=== PATIENT | male | born 1940 | race Two or more races ===

== ENCOUNTER 2016-07-08 23:11 | Inpatient (IN) | payer OTHER ==
[~2016-07-08] VITALS: Ht 165.1 cm; Wt 63.0 kg
[~2016-07-08 23:11] MED LIST: ALLO100T PO; ASPI81TA3 PO; ATOR80TA75 PO; CALC667T2 PO; CARV25TA97 PO; CLIN-73 PO; LANT3I SC; LOSA100T47 PO; NOVO3I SC; PRED20TA PO; RIFA550T4 PO; SENN8.6C3 PO; TAMS-14 PO; TORS20TA2 PO
[2016-07-09] VITALS (10 sets, daily range): BP systolic 112–120; BP diastolic 51–58; PULSE 62–69; RESP 17–19; Ht 165.1 cm; Wt 63.0 kg
[2016-07-09] MEDS ORDERED: SENNA TAB PO PRN (05:30)
[2016-07-09] MEDS: CLINDAMYCIN 300 MG CAP PO SCH ×3 (06:00→21:00)
[2016-07-09] MEDS ORDERED: DEXTROSE 50% 50 ML SYRINGE IV PRN (06:00)
[2016-07-09] MEDS ORDERED: GLUCOSE GEL 15 GRAM TUBE PO PRN ×2 (06:00)
[2016-07-09] MEDS ORDERED: GLUCAGON 1 MG INJ IM PRN (06:00)
[2016-07-09] MEDS ORDERED: GLUCOSE GEL 15 GRAM TUBE BUCCAL PRN (06:00)
[2016-07-09] MEDS: CALCIUM ACETATE 667 MG CAP PO SCH ×3 (07:55→17:55)
[2016-07-09] MEDS: INSULIN ASPART [NOVOLOG] 3 ML PEN SC SCH ×7 (07:55→21:00)
--- NOTE | 2016-07-09 08:20 | HP ---
DATE OF ADMISSION: 07/09/2016 CHIEF COMPLAINT: Altered mentation. HISTORY OF PRESENT ILLNESS: The patient is a 75-year-old male with multiple medical problems includ ing end-stage renal disease on dialysis with severe peripheral vascular disease, hypertension, and c oronary artery disease with history of coronary artery bypass graft, BPH, anemia of chronic disease, dyslipidemia, diabetes, history of left foot gangrene, who was transferred from [facility] of insurance reasons for altered mentation and pneumonia. Reportedly, the patient was receiv ing dialysis at the dialysis center when he became altered. He was taken to [place] where workup so far revealed that he had pneumonia. At [place], workup showed that the patient has pneumonia and a p robable UTI. The patient was transferred here for insurance reasons. Currently, he seems at his [facility] mentation. He does complain of some intermittent shortness of breath. He denied any chest p ain, fever or chills, or cough. Of note, the patient was found to have an ammonia level of 60 at e outside hospital. REVIEW OF SYSTEMS: A 12-point review of systems was performed, negative except as per HPI. PAST MEDICAL HISTORY: As per HPI. PAST SURGICAL HISTORY: Right foot amputation. ALLERGIES: NO KNOWN DRUG ALLERGIES. HOME MEDICATIONS: 1. Rifaximin. 2. Flomax. 3. Atorvastatin. 4. Coreg. 5. Losartan. 6. Aspirin. 7. Calcium. 8. Torsemide. 9. Senna. 10. Insulin. 11. Prednisone. 12. Allopurinol. PHYSICAL EXAMINATION: VITAL SIGNS: Stable. GENERAL: No acute distress, somehow sleepy but arousable and cooperative. HEENT: No obvious head deformity. Pupils are reactive to light. Extraocular muscles intact. CARDIOVASCULAR: Regular rate and rhythm. No extra heart sounds. LUNGS: Slightly decreased breath sounds at the bases. ABDOMEN: Soft, positive bowel sounds, nontender. EXTREMITIES: No edema. LABORATORY: Currently pending here. IMPRESSION 1. Altered mentation, likely from hepatic encephalopathy given elevated ammonia, stable. 2. Reported pneumonia per outside hospital x-ray. 3. End-stage renal disease on dialysis. 4. Diabetes. 5. Hypertension. 6. Coronary artery disease with history of coronary artery bypass graft. 7. BPH. 8. History of left foot ischemic change/gangrene. PLAN: 1. Will continue his home medication with adjustment as needed including rifaximin. We will start him on lactulose. 2. Will obtain basic labs and repeat ammonia level at later time. 3. Will obtain a chest x-ray. 4. He will be placed on antibiotic. We will do infectious workup as needed. 5. We will continue his Coreg medication. 6. For diabetes, he will be placed on insulin with adjustment as needed. Further workup and management per clinical course. Dictated By: DODIE BRADFORD/MAYANK Conf#: [id number] DID#: [id number]
[2016-07-09 08:24] LABS: BASOPHILS % 0.3 % (0.0-2.0); EOSINOPHILS # 0.1 10^3/ul (0.0-0.5); EOSINOPHILS % 1.4 % (0.0-7.0); HEMOGLOBIN 10.4 g/dl (14.0-18.0); LYMPHOCYTES # 0.7 10^3/ul (0.8-2.9); LYMPHOCYTES % 16.6 % (15.0-51.0); MEAN CORPUSCULAR HEMOGLOBIN 29.6 pg (29.0-33.0); MEAN CORPUSCULAR HGB CONC 33.4 g/dl (32.0-37.0); MEAN CORPUSCULAR VOLUME 88.7 fl (82.0-101.0); MEAN PLATELET VOLUME 9.6 fl (7.4-10.4); MONOCYTE # 0.3 10^3/ul (0.3-0.9); MONOCYTES % 7.1 % (0.0-11.0); NEUTROPHIL # 3.1 10^3/ul (1.6-7.5); NEUTROPHILS % 74.6 % (39.0-77.0); PLATELET COUNT 50 10^3/UL (140-440); RED CELL DISTRIBUTION WIDTH 18.1 % (11.5-14.5); UNCORRECTED WBC 4.2 10^3/ul (4.8-10.8); WHITE BLOOD COUNT 4.2 10^3/ul (4.8-10.8)
[2016-07-09 08:27] LABS: ALBUMIN 2.7 g/dl (3.3-4.9)
[2016-07-09 08:28] LABS: POTASSIUM 4.1 mmol/L (3.5-5.1)
[2016-07-09 08:30] LABS: ALBUMIN/GLOBULIN RATIO 0.61; BILIRUBIN,INDIRECT 0.2 mg/dl (0-1.1); BILIRUBIN,TOTAL 0.2 mg/dl (0.2-1.3); CREATININE 2.79 mg/dl (0.61-1.24); TOTAL PROTEIN 7.1 g/dl (6.1-8.1)
[2016-07-09 08:31] LABS: MAGNESIUM 1.8 mg/dl (1.7-2.5); PHOSPHORUS 5.9 mg/dl (2.5-4.9)
[2016-07-09 08:37] LABS: CONDITION 1; LH ANALYZER COMMENTS 1; SUSPECT 1
[2016-07-09] MEDS: ASPIRIN 81 MG TAB PO SCH (09:00)
[2016-07-09] MEDS: RIFAXIMIN 550 MG TAB PO SCH ×2 (09:00→20:59)
[2016-07-09] MEDS: LOSARTAN 50 MG TAB PO SCH (09:00)
[2016-07-09] MEDS ORDERED: LACTULOSE 30ML CUP PO SCH ×2 (09:00→14:00)
[2016-07-09] MEDS: ALLOPURINOL 100 MG TAB PO SCH (09:00)
[2016-07-09] MEDS ORDERED: LACTULOSE ENEMA 1,000 ML BTL PR SCH (12:00)
--- NOTE | 2016-07-09 14:46 | RADRPT ---
PROCEDURE: XR Chest. CLINICAL INDICATION: Shortness of breath. TECHNIQUE: Single frontal view. COMPARISON: None. FINDINGS: There is air space disease in the mid and lower lung zones which may be due to atelectasis or pneumo minoo. The lungs are otherwise clear. There is a tunneled right internal jugular vein dialysis ma[address] ter with the tip in the cavoatrial junction region. The heart is mildly enlarged. There are sternal wires. Calcification is present in the aorta consi stent with atherosclerosis. There is no right pleural effusion. There is a moderate left pleural effusion. There is no pneumothorax. IMPRESSION: 1. Right mid and lower lung zone atelectasis or pneumonia. 2. Dialysis catheter tip in the cavoatrial junction region. 3. Mild cardiomegaly. 4. Previous median sternotomy. 5. Atherosclerosis. 6. Moderate left pleural effusion. RPTAT: QQ .Kyrie Pearson MD, MD Date Time Electronically viewed and signed by .Kyrie Pearson MD, MD on 07/09/2016 14:46 .R/
--- NOTE | 2016-07-09 17:13 | CONS ---
DATE OF ADMISSION: 07/09/2016 DATE OF CONSULTATION: TYPE OF CONSULTATION: Nephrology. Thank you, Dr. Carrillo, for kindly asking us to see this patient in nephrology consultation. HISTORY OF PRESENT ILLNESS: The patient is well known to us with history of ESRD, left below the knee amputation. The patient was transferred from [facility] per staff when he was taken there from the dialysis center. The patient is currently awake, alert, a little confused, unable to give detailed history. The patient's laboratory data reviewed from [facility] shows the patient's pH is 7.37, pCO2 of 49, pO2 of 110. The patient has urinalysis, leukocyte esterase was positive, WBC more than 25, bacteria none. The patient has ammonia 60, WBC 4.5, hematocrit 35.6, platelet count of 70. Sodium 132, potassium 4, BUN 37, creatinine 2.21. Patient's troponin 0.09, CK 50, lipase 20 , ALT 25, AST 52, alkaline phosphatase 185 and the patient was given Rocephin, normal saline and was transferred here for further management. The patient also received vancomycin. Patient's blood pressure was recorded as 104/48. PAST MEDICAL HISTORY: Positive for diabetes mellitus, congestive heart failure , ESRD, CABG, left below the knee amputation, CAD, CHF, cirrhosis, PermCath placement, history of PVD gangrene, right partial foot amputation. MEDICATION HISTORY: Medications as outpatient. 1. Allopurinol. 2. Aspirin. 3. Calcium acetate. 4. Coreg. 5. Docusate sodium. 6. Losartan. 7. Prednisone. 8. Senna. 9. Flomax. 10. Demadex. REVIEW OF SYSTEMS: Cannot be obtained from this patient. PHYSICAL EXAMINATION: GENERAL: The patient is awake, alert, not in any acute respiratory distress. VITAL SIGNS: Stable. HEENT: Head is atraumatic, normocephalic. Pupils equal, reactive. NECK: Supple. LUNGS: Clear. ____ CARDIOVASCULAR: S1, S2 normal. Systolic murmur. ABDOMEN: Soft, nontender. Bowel sounds present. No palpable mass or hepatosplenomegaly. EXTREMITIES: There is no cyanosis, clubbing, or edema. The patient has no edema, the patient has left BKA. LABORATORY DATA: Done from [place], WBC 45, hematocrit of 35.5, platelet count of 70. Chest x-ray done shows the patient has small amount of left lateral pleural fluid, left basilar atelectasis infiltrate, mild prominence of pulmonary vasculature. CT head shows ____ indicative of atrophy with decreased attenuation in the subcortical and deep cortical matter of the right frontal lobe, old basal ganglia ____ infarction. Decreased attenuation in the periventricular deep white matter, indicative of microvascular ischemic changes, bony structures within normal limits. Mild mucoperiosteal thickening of the left maxillary sinus, atherosclerosis of the carotid artery. IMPRESSION: 1. Altered mental status. 2. Pneumonia. 3. Urinary tract infection. 4. End-stage renal disease. 5. Diabetes mellitus. 6. Cirrhosis of the liver. 7. Hypertension. 8. Coronary artery disease. 9. Dementia status post hypotension. 10. The patient has a left below-knee amputation. 11. Atherosclerotic heart disease. 12. The patient also has old cerebrovascular accident. PLAN: Plan at this point is to continue current treatment. Hemodialysis will be scheduled Wednesday, Wednesday, Wednesday. Other treatments for hepatic encephalopathy and antibiotic use per primary care team. Adjust dose of the antibiotic in view of patient's ESRD status. Thank you, Dr. Carrillo, for kindly asking me to see this patient in nephrology consultation. The patient will be followed along with you. Further recommendations will be made as patient's nephrology and medical condition requires. Dictated By: DEJAH ORONA/MAYANK Conf#: [id number] DID#: [id number] MTDD
[2016-07-09] MEDS: ATORVASTATIN 80 MG TAB PO SCH (20:59)
[2016-07-09] MEDS: TAMSULOSIN (SR) 0.4 MG CAP PO SCH (20:59)
[2016-07-09] MEDS: INSULIN GLARGINE [LANtus] 3 ML PEN SC SCH (20:59)
[2016-07-09] MEDS: LACTULOSE ENEMA 1,000 ML BTL PR SCH (22:14)
[2016-07-10] VITALS (24 sets, daily range): BP systolic 112–133; BP diastolic 54–78; PULSE 64–77; RESP 15–22
[2016-07-10] MEDS: ACCUCHECK XX SCH
[2016-07-10] MEDS: ACCUCHECK AT 2AM (Patients on SS coverage) XX SCH (00:02)
[2016-07-10] MEDS: CLINDAMYCIN 300 MG CAP PO SCH ×2 (06:00→13:09)
[2016-07-10 06:24] LABS: CREATININE 3.34 mg/dl (0.61-1.24)
[2016-07-10 06:25] LABS: CALCIUM 8.2 mg/dl (8.4-10.2)
[2016-07-10 06:31] LABS: BASOPHILS % 0.1 % (0.0-2.0); EOSINOPHILS # 0.1 10^3/ul (0.0-0.5); EOSINOPHILS % 1.2 % (0.0-7.0); HEMATOCRIT 32.4 % (42.0-52.0); HEMOGLOBIN 10.8 g/dl (14.0-18.0); LYMPHOCYTES # 0.8 10^3/ul (0.8-2.9); LYMPHOCYTES % 18.9 % (15.0-51.0); MEAN CORPUSCULAR HGB CONC 33.4 g/dl (32.0-37.0); MEAN CORPUSCULAR VOLUME 89.7 fl (82.0-101.0); MEAN PLATELET VOLUME 10.5 fl (7.4-10.4); MONOCYTE # 0.3 10^3/ul (0.3-0.9); MONOCYTES % 7.9 % (0.0-11.0); NEUTROPHILS % 71.9 % (39.0-77.0); RED BLOOD COUNT 3.62 10^6/ul (4.70-6.10); RED CELL DISTRIBUTION WIDTH 18.1 % (11.5-14.5); UNCORRECTED WBC 4.2 10^3/ul (4.8-10.8); WHITE BLOOD COUNT 4.2 10^3/ul (4.8-10.8)
[2016-07-10] MEDS: LACTULOSE ENEMA 1,000 ML BTL PR SCH ×2 (06:44→13:10)
[2016-07-10 06:52] LABS: CONDITION 1; LH ANALYZER COMMENTS 1; PLATELET COUNT 71 10^3/UL (140-440)
[2016-07-10] MEDS: CALCIUM ACETATE 667 MG CAP PO SCH ×3 (07:55→17:07)
[2016-07-10] MEDS: INSULIN ASPART [NOVOLOG] 3 ML PEN SC SCH ×7 (07:55→20:18)
[2016-07-10] MEDS: LOSARTAN 50 MG TAB PO SCH (08:03)
[2016-07-10] MEDS: ALLOPURINOL 100 MG TAB PO SCH (08:03)
[2016-07-10] MEDS: ASPIRIN 81 MG TAB PO SCH (08:03)
[2016-07-10] MEDS: RIFAXIMIN 550 MG TAB PO SCH ×2 (08:03→20:17)
--- NOTE | 2016-07-10 11:28 | PDOCDIS ---
Discharge Instructions CONDITION Patient Condition: Stable HOME CARE INSTRUCTIONS: Diet Instructions: ACTIVITY: Activity Restrictions: Slowly Increase Activity FOLLOW UP/APPOINTMENTS Appointments Please take your medications as prescribed, and see your doctor in clinic in 1- 2 weeks. JOSH HORTON Jul 10, 2016 11:28
[2016-07-10] MEDS ORDERED: LACTULOSE ENEMA PR (11:29)
[2016-07-10] MEDS ORDERED: LEVO750T25 PO (11:39)
--- NOTE | 2016-07-10 12:06 | DS ---
DATE OF ADMISSION: 07/09/2016 DATE OF DISCHARGE: 07/10/2016 This is a 75-year-old male originally admitted on 07/09/2016 and being discharged home on July 10 pending swallow evaluation. HOSPITAL COURSE: A 75-year-old male who came in with altered mental status. He was actually transf erred from outside hospital. His ammonia at the outside hospital was 63. He was admitted here. He was placed on lactulose. The patient also had some difficulty swallowing and underwent a swallow e valuation as well and those results are pending by the time of discharge. The patient's altered men juanita status improved after getting lactulose. His ammonia levels came down to normal. He is back to his baseline status as far as his mental status. His vital signs were stable, and again we are evelyn mcdonnellg for the results of swallow eval. He did receive dialysis as well as he has a history of end-st age renal disease, and he was seen by renal team. If the patient's swallow evaluations is satisfact ory and he gets dialysis set up as an outpatient as well as home health PT, he will be discharged ho fl later today in improved condition. If he does, he will be sent with the following medications: 1. Lactulose enema 100 mL per rectal q.12 hours. 2. Allopurinol 200 mg daily. 3. Aspirin 81 mg daily. 4. Atorvastatin 80 mg at bedtime. 5. PhosLo 667 mg with meals. 6. Coreg 25 mg b.i.d. 7. Clindamycin 300 mg p.o. q. 8 hours. 8. Aspart units subQ with meals. 9. Lantus 24 units subQ at bedtime. 10. Losartan 100 mg daily. 11. Prednisone 60 mg daily. 12. Xifaxan 550 mg b.i.d. 13. Senna 1 tab daily p.r.n. 14. Flomax 0.4 mg at bedtime. 15. Furosemide 20 mg b.i.d. 16. Levaquin 750 mg p.o. daily for 5 more days. Continue dialysis as an outpatient and follow up with regular doctor in the clinic in the next 1 to 2 weeks. FINAL DIAGNOSES: 1. Altered mental status, most likely secondary to elevated ammonia levels, now improved with lactu lose. 2. End-stage renal disease on dialysis. 3. Severe peripheral vascular disease. 4. Hypertension, essential. 5. Coronary artery disease with history of coronary artery bypass grafting in the past. 6. Benign prostatic hypertrophy. 7. Anemia of chronic disease. 8. High cholesterol. 9. Diabetes type 2. 10. History of left foot gangrene. 11. Mild pneumonia. 12. History of left [id number] amputation in the past. Time spent on discharging the patient, 50 minutes. Dictated By: JOSH VERNON Conf#: [id number] DID#: [id number]
[2016-07-10] MEDS: CLINDAMYCIN 300 MG/D5W (PMX) 50 ML IVPB SCH ×2 (14:55→21:18)
[2016-07-10] MEDS: TAMSULOSIN (SR) 0.4 MG CAP PO SCH (20:17)
[2016-07-10] MEDS: INSULIN GLARGINE [LANtus] 3 ML PEN SC SCH (20:17)
[2016-07-10] MEDS: ATORVASTATIN 80 MG TAB PO SCH (20:17)
--- NOTE | 2016-07-10 20:52 | CONS ---
Date/Time of Note Date/Time of Note DATE: 07/10/16 TIME: 20:51 Assessment/Plan Assessment/Plan Chief Complaint/Hosp Course IMPRESSION: 1. Altered mental status. 2. Pneumonia. 3. Urinary tract infection. 4. End-stage renal disease. 5. Diabetes mellitus. 6. Cirrhosis of the liver. 7. Hypertension. 8. Coronary artery disease. 9. Dementia status post hypotension. 10. The patient has a left below-knee amputation. 11. Atherosclerotic heart disease. 12. The patient also has old cerebrovascular accident. plan hd Problems: Consultation Date/Type/Reason Admit Date/Time Jul 09, 2016 at 03:38 Initial Consult Date Type of Consultation: renal 24 HR Interval Summary Subjective hx not possible: other (seen on hd) Constitutional: no complaints Exam/Review of Systems Vital Signs Vitals Vital Signs Date Time Temp Pulse Resp B/P Pulse Ox O2 Delivery O2 Flow Rate FiO2 07/10/16 20:16 77 07/10/16 19:03 97.8 15 133/58 94 07/10/16 08:00 Nasal Cannula 4.0 Intake and Output 07/09/16 07/09/16 07/10/16 15:00 23:00 07:00 Output Total 150 ml Balance -150 ml Exam Neck: supple Respiratory: clear to auscultation Cardiovascular: regular rate and rhythm Gastrointestinal: soft Musculoskeletal: nl extremities to inspection Extremities: normal pulses Results Result Diagram: 07/10/16 0530 07/10/16 0530 Results 24 hrs Laboratory Tests Test 07/10/16 05:30 07/10/16 08:16 07/10/16 11:57 07/10/16 17:12 Ammonia 23 Anion Gap 18 H Basophils # 0.0 Basophils % 0.1 Blood Morphology Comment Blood Urea Nitrogen 77 H Calcium Level 8.2 L Carbon Dioxide Level 23 Chloride Level 98 Creatinine 3.34 H Eosinophils # 0.1 Eosinophils % 1.2 Glucose Level 130 Hematocrit 32.4 L Hemoglobin 10.8 L Lymphocytes # 0.8 Lymphocytes % 18.9 Mean Corpuscular Hemoglobin 30.0 Mean Corpuscular Hemoglobin Concent 33.4 Mean Corpuscular Volume 89.7 Mean Platelet Volume 10.5 H Monocytes # 0.3 Monocytes % 7.9 Neutrophils # 3.0 Neutrophils % 71.9 Nucleated Red Blood Cells # 0.0 Nucleated Red Blood Cells % 0.0 Platelet Count 71 #L Potassium Level 4.0 Red Blood Count 3.62 L Red Cell Distribution Width 18.1 H Sodium Level 135 White Blood Count 4.2 L Bedside Glucose 137 171 179 Test 07/10/16 19:52 Bedside Glucose 185 Medications Medications Current Medications Allopurinol (Zyloprim) 200 mg DAILY PO ; Start 07/09/16 at 09:00 Aspirin (Aspirin) 81 mg DAILY PO ; Start 07/09/16 at 09:00 Atorvastatin Calcium (Lipitor) 80 mg QHS PO ; Start 07/09/16 at 21:00 Carvedilol (Coreg) 25 mg BID PO ; Start 07/09/16 at 09:00 Insulin Glargine (Lantus) 24 unit QHS SC ; Start 07/09/16 at 21:00 Losartan Potassium (Cozaar) 100 mg DAILY PO ; Start 07/09/16 at 09:00; Status Future Hold Rifaximin (Xifaxan) 550 mg BID PO ; Start 07/09/16 at 09:00 Senna (Senokot) 1 tab DAILY PRN PO CONSTIPATION; Start 07/09/16 at 05:30 Tamsulosin HCl (Flomax) 0.4 mg HS PO ; Start 07/09/16 at 21:00 Diagnostic Test (Pha) (Accucheck) 1 ea 02 XX ; Start 07/10/16 at 02:00 Miscellaneous Information 1 ea NOTE XX ; Start 07/09/16 at 06:00 Glucose (Glutose) 15 gm Q15M PRN PO DECREASED GLUCOSE; Start 07/09/16 at 06:00 Glucose (Glutose) 22.5 gm Q15M PRN PO DECREASED GLUCOSE; Start 07/09/16 at 06: 00 Dextrose (D50w Syringe) 25 ml Q15M PRN IV DECREASED GLUCOSE; Start 07/09/16 at 06:00 Dextrose (D50w Syringe) 50 ml Q15M PRN IV DECREASED GLUCOSE; Start 07/09/16 at 06:00 Glucagon (Glucagen) 1 mg Q15M PRN IM DECREASED GLUCOSE; Start 07/09/16 at 06:00 Glucose (Glutose) 15 gm Q15M PRN BUCCAL DECREASED GLUCOSE; Start 07/09/16 at 06 :00 Diagnostic Test (Pha) (Accucheck) 1 ea 02 XX ; Start 07/10/16 at 02:00 Lactulose 100 ml 100 ml Q8 PA Last administered on 07/10/16 06:44; Admin Dose 100 ML; Start 07/09/16 at 22:00; Status Future Hold Clindamycin HCl/ Dextrose (Cleocin 300 Mg/ D5W (Pmx)) 50 ml @ 100 mls/hr Q8 IVPB Last administered on 07/10/16 14:55; Admin Dose 100 MLS/HR; Start at 14:00 DEJAH JORDAN MD Jul 10, 2016 20:52
[2016-07-11] VITALS (13 sets, daily range): BP systolic 107–141; BP diastolic 2–64; PULSE 60–79; RESP 18–21
[2016-07-11] MEDS: ACCUCHECK AT 2AM (Patients on SS coverage) XX SCH (01:09)
[2016-07-11] MEDS: ACCUCHECK XX SCH (01:09)
[2016-07-11] MEDS: CLINDAMYCIN 300 MG/D5W (PMX) 50 ML IVPB SCH ×3 (06:32→21:19)
[2016-07-11 06:56] LABS: BASOPHILS % 0.6 % (0.0-2.0); EOSINOPHILS # 0.1 10^3/ul (0.0-0.5); EOSINOPHILS % 1.6 % (0.0-7.0); HEMATOCRIT 31.7 % (42.0-52.0); HEMOGLOBIN 10.6 g/dl (14.0-18.0); LYMPHOCYTES # 0.6 10^3/ul (0.8-2.9); LYMPHOCYTES % 15.7 % (15.0-51.0); MEAN CORPUSCULAR HEMOGLOBIN 30.1 pg (29.0-33.0); MEAN CORPUSCULAR HGB CONC 33.3 g/dl (32.0-37.0); MEAN CORPUSCULAR VOLUME 90.4 fl (82.0-101.0); MEAN PLATELET VOLUME 10.3 fl (7.4-10.4); MONOCYTE # 0.4 10^3/ul (0.3-0.9); MONOCYTES % 9.7 % (0.0-11.0); NEUTROPHIL # 2.9 10^3/ul (1.6-7.5); NEUTROPHILS % 72.4 % (39.0-77.0); RED BLOOD COUNT 3.51 10^6/ul (4.70-6.10); RED CELL DISTRIBUTION WIDTH 18.4 % (11.5-14.5)
[2016-07-11 07:04] LABS: CONDITION 1; LH ANALYZER COMMENTS 1; PLATELET COUNT 81 10^3/UL (140-440)
[2016-07-11 07:22] LABS: POTASSIUM 3.6 mmol/L (3.5-5.1)
[2016-07-11 07:24] LABS: CREATININE 2.73 mg/dl (0.61-1.24)
[2016-07-11 07:25] LABS: CALCIUM 8.2 mg/dl (8.4-10.2)
[2016-07-11] MEDS: INSULIN ASPART [NOVOLOG] 3 ML PEN SC SCH ×7 (07:55→21:00)
[2016-07-11] MEDS: CALCIUM ACETATE 667 MG CAP PO SCH ×3 (07:55→17:02)
[2016-07-11] MEDS: ALLOPURINOL 100 MG TAB PO SCH (09:00)
[2016-07-11] MEDS: ASPIRIN 81 MG TAB PO SCH (09:00)
[2016-07-11] MEDS: RIFAXIMIN 550 MG TAB PO SCH ×2 (09:00→21:00)
[2016-07-11] MEDS: ALBUTEROL/IPRATROPIUM (NEB) 3 ML AMP HHN PRN ×2 (09:59→21:24)
--- NOTE | 2016-07-11 10:20 | CONS ---
Date/Time of Note Date/Time of Note DATE: 07/11/16 TIME: 10:19 Assessment/Plan Assessment/Plan Additional Assessment/Plan 1. Altered mentation, likely from hepatic encephalopathy given elevated ammonia , stable. 2. Reported pneumonia per outside hospital x-ray. 3. End-stage renal disease on dialysis. 4. Diabetes. 5. Hypertension. 6. Coronary artery disease with history of coronary artery bypass graft. 7. BPH. 8. History of left foot ischemic change/gangrene. Plan: S/p HD yesterday, pt gets HD on MWF BP stable pt failed swallow evaluation so discharge plan is cancelled Consultation Date/Type/Reason Admit Date/Time Jul 09, 2016 at 03:38 Initial Consult Date Type of Consultation: NEPHROLOGY Referring Provider: DODIE LEIGH MD 24 HR Interval Summary Free Text/Dictation pt remained stable, afebrile, BP stable, s/p HD yesterday, Pt failed swallow evaluation Exam/Review of Systems Vital Signs Vitals Vital Signs Date Time Temp Pulse Resp B/P Pulse Ox O2 Delivery O2 Flow Rate FiO2 07/11/16 10:06 5.0 07/11/16 10:00 68 20 99 Nasal Cannula 07/11/16 07:36 97.6 107/60 Intake and Output 07/10/16 07/10/16 07/11/16 14:59 22:59 06:59 Intake Total 250 ml 400 ml 100 ml Output Total 100 ml 2200 ml 701 ml Balance 150 ml -1800 ml -601 ml Exam GENERAL: The patient is awake, alert, not in any acute respiratory distress. VITAL SIGNS: Stable. HEENT: Head is atraumatic, normocephalic. Pupils equal, reactive. NECK: Supple. LUNGS: Clear CARDIOVASCULAR: S1, S2 normal. Systolic murmur. ABDOMEN: Soft, nontender. Bowel sounds present. No palpable mass or hepatosplenomegaly. EXTREMITIES: There is no cyanosis, clubbing, or edema. The patient has no edema, the patient has left BKA. Results Result Diagram: 07/11/16 0600 07/11/16 0600 Results 24 hrs Laboratory Tests Test 07/10/16 11:57 07/10/16 17:12 07/10/16 19:52 07/11/16 06:00 Bedside Glucose 171 179 185 Anion Gap 18 H Basophils # 0.0 Basophils % 0.6 Blood Morphology Comment Blood Urea Nitrogen 48 #H Calcium Level 8.2 L Carbon Dioxide Level 23 Chloride Level 101 Creatinine 2.73 H Eosinophils # 0.1 Eosinophils % 1.6 Glucose Level 124 Hematocrit 31.7 L Hemoglobin 10.6 L Lymphocytes # 0.6 L Lymphocytes % 15.7 Mean Corpuscular Hemoglobin 30.1 Mean Corpuscular Hemoglobin Concent 33.3 Mean Corpuscular Volume 90.4 Mean Platelet Volume 10.3 Monocytes # 0.4 Monocytes % 9.7 Neutrophils # 2.9 Neutrophils % 72.4 Nucleated Red Blood Cells # 0.0 Nucleated Red Blood Cells % 0.0 Platelet Count 81 L Potassium Level 3.6 Red Blood Count 3.51 L Red Cell Distribution Width 18.4 H Sodium Level 138 White Blood Count 4.0 L Test 07/11/16 07:46 07/11/16 09:00 Bedside Glucose 144 Ammonia 14 Medications Medications Current Medications Allopurinol (Zyloprim) 200 mg DAILY PO ; Start 07/09/16 at 09:00 Aspirin (Aspirin) 81 mg DAILY PO ; Start 07/09/16 at 09:00 Atorvastatin Calcium (Lipitor) 80 mg QHS PO ; Start 07/09/16 at 21:00 Carvedilol (Coreg) 25 mg BID PO ; Start 07/09/16 at 09:00 Insulin Glargine (Lantus) 24 unit QHS SC ; Start 07/09/16 at 21:00 Losartan Potassium (Cozaar) 100 mg DAILY PO ; Start 07/09/16 at 09:00; Status Future Hold Rifaximin (Xifaxan) 550 mg BID PO ; Start 07/09/16 at 09:00 Senna (Senokot) 1 tab DAILY PRN PO CONSTIPATION; Start 07/09/16 at 05:30 Tamsulosin HCl (Flomax) 0.4 mg HS PO ; Start 07/09/16 at 21:00 Diagnostic Test (Pha) (Accucheck) 1 ea 02 XX ; Start 07/10/16 at 02:00 Miscellaneous Information 1 ea NOTE XX ; Start 07/09/16 at 06:00 Glucose (Glutose) 15 gm Q15M PRN PO DECREASED GLUCOSE; Start 07/09/16 at 06:00 Glucose (Glutose) 22.5 gm Q15M PRN PO DECREASED GLUCOSE; Start 07/09/16 at 06: 00 Dextrose (D50w Syringe) 25 ml Q15M PRN IV DECREASED GLUCOSE; Start 07/09/16 at 06:00 Dextrose (D50w Syringe) 50 ml Q15M PRN IV DECREASED GLUCOSE; Start 07/09/16 at 06:00 Glucagon (Glucagen) 1 mg Q15M PRN IM DECREASED GLUCOSE; Start 07/09/16 at 06:00 Glucose (Glutose) 15 gm Q15M PRN BUCCAL DECREASED GLUCOSE; Start 07/09/16 at 06 :00 Diagnostic Test (Pha) (Accucheck) ea 02 XX ; Start 07/10/16 at 02:00 Lactulose 100 ml 100 ml Q8 MO Last administered on 07/10/16 06:44; Admin Dose 100 ML; Start 07/09/16 at 22:00; Status Future Hold Clindamycin HCl/ Dextrose (Cleocin 300 Mg/ D5W (Pmx)) 50 ml @ 100 mls/hr Q8 IVPB Last administered on 07/11/16 06:32; Admin Dose 100 MLS/HR; Start at 14:00 Insulin Aspart (Novolog Insulin Pen) 8 unit Q4 SC ; Start 07/11/16 at 13:00; Status OLGA SAGASTUME MD Jul 11, 2016 10:20
[2016-07-11] MEDS ORDERED: INSULIN ASPART [NOVOLOG] 3 ML PEN SC SCH (13:00)
--- NOTE | 2016-07-11 14:16 | PN ---
Date/Time of Note Date/Time of Note DATE: 07/11/16 TIME: 14:08 Assessment/Plan VTE Prophylaxis VTE Prophylaxis Intervention: heparin Lines/Catheters IV Catheter Type (from Nrs): Peripheral IV Urinary Cath still in place: Yes Reason Cath still needed: urinary retention Assessment/Plan Chief Complaint/Hosp Course A/P: 75 M p/w altered mental status, most likely secondary to elevated ammonia levels, now improved with lactulose, with end-stage renal disease on dialysis, dysphagia. 1. Altered mentation, likely from hepatic encephalopathy given elevated ammonia , stable. - continue laculose PA, rifaximin. 2. Reported pneumonia per outside hospital x-ray - IV clindamycin. - We will do infectious workup as needed. 3. End-stage renal disease on dialysis -s/p HD, appreciate renal consult - HD per renal rec's 4. Diabetes - FS stable - he will be placed on insulin with adjustment as needed. 5. Hypertension stable - continue current meds. 6. Coronary artery disease with history of coronary artery bypass graft. - monitor 7. BPH. - monitor 8. History of left foot ischemic change/gangrene. - monitor 9. GI ppx - PPI 10 DVT ppx - heparin 11. dysphagia - failed swallow eval - per ST - needs PEG vs NG tube feeds - family still deciding about this Problems: Subjective 24 Hr Interval Summary Free Text/Dictation Pt seen by ST, still with very poor swallow fct and d/c held yesterday, received HD yesterday. Exam/Review of Systems Vital Signs Vitals Vital Signs Date Time Temp Pulse Resp B/P Pulse Ox O2 Delivery O2 Flow Rate FiO2 07/11/16 12:46 64 07/11/16 11:20 98.4 18 112/57 97 07/11/16 10:06 5.0 07/11/16 10:00 Nasal Cannula Intake and Output 07/10/16 07/10/16 07/11/16 15:00 23:00 07:00 Intake Total 250 ml 400 ml 100 ml Output Total 100 ml 2200 ml 701 ml Balance 150 ml -1800 ml -601 ml Exam GENERAL: No acute distress, daughter at bedside, awake HEENT: No obvious head deformity. Pupils are reactive to light. Extraocular muscles intact. CARDIOVASCULAR: Regular rate and rhythm. No extra heart sounds. LUNGS: Slightly decreased breath sounds at the bases. ABDOMEN: Soft, positive bowel sounds, nontender. EXTREMITIES: No edema, amputation Results Result Diagram: 07/11/16 0600 07/11/16 0600 Results 24 hrs Laboratory Tests Test 07/10/16 17:12 07/10/16 19:52 07/11/16 06:00 07/11/16 07:46 Bedside Glucose 179 185 144 Anion Gap 18 H Basophils # 0.0 Basophils % 0.6 Blood Morphology Comment Blood Urea Nitrogen 48 #H Calcium Level 8.2 L Carbon Dioxide Level 23 Chloride Level 101 Creatinine 2.73 H Eosinophils # 0.1 Eosinophils % 1.6 Glucose Level 124 Hematocrit 31.7 L Hemoglobin 10.6 L Lymphocytes # 0.6 L Lymphocytes % 15.7 Mean Corpuscular Hemoglobin 30.1 Mean Corpuscular Hemoglobin Concent 33.3 Mean Corpuscular Volume 90.4 Mean Platelet Volume 10.3 Monocytes # 0.4 Monocytes % 9.7 Neutrophils # 2.9 Neutrophils % 72.4 Nucleated Red Blood Cells # 0.0 Nucleated Red Blood Cells % 0.0 Platelet Count 81 L Potassium Level 3.6 Red Blood Count 3.51 L Red Cell Distribution Width 18.4 H Sodium Level 138 White Blood Count 4.0 L Test 07/11/16 09:00 07/11/16 11:23 Ammonia 14 Bedside Glucose 126 Medications Medications Current Medications Allopurinol (Zyloprim) 200 mg DAILY PO ; Start 07/09/16 at 09:00 Aspirin (Aspirin) 81 mg DAILY PO ; Start 07/09/16 at 09:00 Atorvastatin Calcium (Lipitor) 80 mg QHS PO ; Start 07/09/16 at 21:00 Carvedilol (Coreg) 25 mg BID PO ; Start 07/09/16 at 09:00 Insulin Glargine (Lantus) 24 unit QHS SC ; Start 07/09/16 at 21:00 Losartan Potassium (Cozaar) 100 mg DAILY PO ; Start 07/09/16 at 09:00; Status Future Hold Rifaximin (Xifaxan) 550 mg BID PO ; Start 07/09/16 at 09:00 Senna (Senokot) 1 tab DAILY PRN PO CONSTIPATION; Start 07/09/16 at 05:30 Tamsulosin HCl (Flomax) 0.4 mg HS PO ; Start 07/09/16 at 21:00 Diagnostic Test (Pha) (Accucheck) 1 ea 02 XX ; Start 07/10/16 at 02:00 Miscellaneous Information 1 ea NOTE XX ; Start 07/09/16 at 06:00 Glucose (Glutose) 15 gm Q15M PRN PO DECREASED GLUCOSE; Start 07/09/16 at 06:00 Glucose (Glutose) 22.5 gm Q15M PRN PO DECREASED GLUCOSE; Start 07/09/16 at 06: 00 Dextrose (D50w Syringe) 25 ml Q15M PRN IV DECREASED GLUCOSE; Start 07/09/16 at 06:00 Dextrose (D50w Syringe) 50 ml Q15M PRN IV DECREASED GLUCOSE; Start 07/09/16 at 06:00 Glucagon (Glucagen) 1 mg Q15M PRN IM DECREASED GLUCOSE; Start 07/09/16 at 06:00 Glucose (Glutose) 15 gm Q15M PRN BUCCAL DECREASED GLUCOSE; Start 07/09/16 at 06 :00 Diagnostic Test (Pha) (Accucheck) 1 ea 02 XX ; Start 07/10/16 at 02:00 Lactulose 100 ml 100 ml Q8 PA Last administered on 07/10/16 06:44; Admin Dose 100 ML; Start 07/09/16 at 22:00; Status Future Hold Clindamycin HCl/ Dextrose (Cleocin 300 Mg/ D5W (Pmx)) 50 ml @ 100 mls/hr Q8 IVPB Last administered on 07/11/16 14:02; Admin Dose 100 MLS/HR; Start at 14:00 Insulin Aspart (Novolog Insulin Pen) NOVOLOG *MILD* ALGORITHM Q4 SC ; Start at 13:00 JOSH HORTON Jul 11, 2016 14:16
--- NOTE | 2016-07-11 14:39 | RADRPT ---
PROCEDURE: Video swallowing study CLINICAL INDICATION: Dysphagia TECHNIQUE: Modified barium swallowing study was performed. Fluoroscopy was utilized for the proce dure. Imaging was confined to the oral pharyngeal and cervical phases of the swallowing mechanism. Fluoroscopic guidance was utilized during a modified barium swallowing study with multiple swallows of thin and thick liquids. COMPARISON: None available FINDINGS: 3 mA of fluoroscopy time was utilized during the procedure. [place] liquids demonstrated penetration with spoon feeding and silent aspiration with a cup. Pureed food demonstrates penetration to the vocal cords with possible trace aspiration secondary to residue in the vallecula. Soft foods showed penetration with trace aspiration. Residual fluid seen within the vallecula with all tested food consistencies. IMPRESSION: 1. Penetration and aspiration as described above. 2. Please refer to swallowing therapist's recommendations for future feedings. RPTAT: PP .Jeffy De Anda MD, MD Date Time Electronically viewed and signed by .Jeffy De Anda MD, MD on 07/11/2016 14:39 .Hernandez/
[2016-07-11] MEDS: LORAZEPAM 2 MG INJ IV PRN (14:55)
[2016-07-11] MEDS: DEXTROSE 5%-0.45% NACL 1,000 ML IV SCH (16:36)
[2016-07-11] MEDS: INSULIN GLARGINE [LANtus] 3 ML PEN SC SCH (21:00)
[2016-07-11] MEDS: ATORVASTATIN 80 MG TAB PO SCH (21:00)
[2016-07-11] MEDS: HEPARIN 5,000 UNIT/0.5 ML SYG SC SCH (21:00)
[2016-07-11] MEDS: TAMSULOSIN (SR) 0.4 MG CAP PO SCH (21:00)
[2016-07-12] VITALS (13 sets, daily range): BP systolic 120–146; BP diastolic 57–68; PULSE 66–79; RESP 18–20
[2016-07-12] MEDS: INSULIN ASPART [NOVOLOG] 3 ML PEN SC SCH ×10 (01:00→20:33)
[2016-07-12] MEDS: ACCUCHECK XX SCH (01:37)
[2016-07-12] MEDS: ACCUCHECK AT 2AM (Patients on SS coverage) XX SCH (01:38)
[2016-07-12] MEDS: ALBUTEROL/IPRATROPIUM (NEB) 3 ML AMP HHN PRN (02:47)
[2016-07-12] MEDS: PANTOPRAZOLE 40 MG INJ IV SCH (05:47)
[2016-07-12] MEDS: CLINDAMYCIN 300 MG/D5W (PMX) 50 ML IVPB SCH ×3 (05:53→21:28)
[2016-07-12 07:22] LABS: POTASSIUM 3.8 mmol/L (3.5-5.1)
[2016-07-12 07:24] LABS: CREATININE 3.28 mg/dl (0.61-1.24)
[2016-07-12] MEDS: CALCIUM ACETATE 667 MG CAP PO SCH ×3 (07:55→17:41)
[2016-07-12 08:04] LABS: HEMATOCRIT 33.9 % (42.0-52.0); HEMOGLOBIN 11.4 g/dl (14.0-18.0); MEAN CORPUSCULAR HGB CONC 33.7 g/dl (32.0-37.0); MEAN CORPUSCULAR VOLUME 89.1 fl (82.0-101.0); MEAN PLATELET VOLUME 10.6 fl (7.4-10.4); PLATELET COUNT 62 10^3/UL (140-440); RED BLOOD COUNT 3.81 10^6/ul (4.70-6.10); RED CELL DISTRIBUTION WIDTH 18.7 % (11.5-14.5); UNCORRECTED WBC 3.7 10^3/ul (4.8-10.8); WHITE BLOOD COUNT 3.7 10^3/ul (4.8-10.8)
[2016-07-12 08:07] LABS: CONDITION 1; LH ANALYZER COMMENTS 1
[2016-07-12] MEDS: DEXTROSE 5%-0.45% NACL 1,000 ML IV SCH (08:21)
[2016-07-12] MEDS: HEPARIN 5,000 UNIT/0.5 ML SYG SC SCH ×2 (08:23→20:36)
[2016-07-12] MEDS: RIFAXIMIN 550 MG TAB PO SCH ×2 (08:29→20:32)
[2016-07-12] MEDS: ASPIRIN 81 MG TAB PO SCH (08:29)
[2016-07-12] MEDS: ALLOPURINOL 100 MG TAB PO SCH (08:29)
--- NOTE | 2016-07-12 10:03 | PN ---
Date/Time of Note Date/Time of Note DATE: 07/12/16 TIME: 10:01 Assessment/Plan VTE Prophylaxis VTE Prophylaxis Intervention: heparin Lines/Catheters IV Catheter Type (from Nrs): Peripheral IV Urinary Cath still in place: Yes Reason Cath still needed: urinary retention Assessment/Plan Chief Complaint/Hosp Course A/P: 75 M p/w altered mental status, most likely secondary to elevated ammonia levels, now improved with lactulose, with end-stage renal disease on dialysis, dysphagia. 1. Altered mentation, likely from hepatic encephalopathy given elevated ammonia , stable. - continue laculose [place], rifaximin. 2. Reported pneumonia per outside hospital x-ray - IV clindamycin. - We will do infectious workup as needed. 3. End-stage renal disease on dialysis -s/p HD, appreciate renal consult - HD per renal rec's 4. Diabetes - FS stable - he will be placed on insulin with adjustment as needed. 5. Hypertension stable - continue current meds. 6. Coronary artery disease with history of coronary artery bypass graft. - monitor 7. BPH. - monitor 8. History of left foot ischemic change/gangrene. - monitor 9. GI ppx - PPI 10 DVT ppx - heparin 11. dysphagia - failed swallow eval - per ST - needs PEG vs NG tube feeds - family apparently ok with NG tube - if confirmed will order for this today and get dietary consult for tube feeds. Problems: Subjective 24 Hr Interval Summary Free Text/Dictation No acute events overnight, apparently (per nursing notes) family is agreeing to NG tube placement now. Exam/Review of Systems Vital Signs Vitals Vital Signs Date Time Temp Pulse Resp B/P Pulse Ox O2 Delivery O2 Flow Rate FiO2 07/12/16 08:32 69 07/12/16 07:05 97.9 18 141/65 97 07/12/16 02:50 Nasal Cannula 4.0 Intake and Output 07/11/16 07/11/16 07/12/16 15:00 23:00 07:00 Intake Total 50 ml 570 ml Output Total 50 ml Balance 50 ml 520 ml Exam GENERAL: No acute distress, but lethargic HEENT: No obvious head deformity. Pupils are reactive to light. Extraocular muscles intact. CARDIOVASCULAR: Regular rate and rhythm. No extra heart sounds. LUNGS: Slightly decreased breath sounds at the bases. ABDOMEN: Soft, positive bowel sounds, nontender. EXTREMITIES: No edema, amputation Results Result Diagram: 07/12/16 0554 07/12/16 0555 Results 24 hrs Laboratory Tests Test 07/11/16 11:23 07/11/16 17:45 07/11/16 21:16 07/12/16 01:34 Bedside Glucose 126 185 154 161 Test 07/12/16 05:46 07/12/16 05:54 07/12/16 05:55 Bedside Glucose 179 Basophils # Pending Basophils % Pending Blood Morphology Comment Eosinophils # Pending Eosinophils % Pending Hematocrit 33.9 L Hemoglobin 11.4 L Lymphocytes # Pending Lymphocytes % Pending Mean Corpuscular Hemoglobin 30.0 Mean Corpuscular Hemoglobin Concent 33.7 Mean Corpuscular Volume 89.1 Mean Platelet Volume 10.6 H Monocytes # Pending Monocytes % Pending Neutrophils # Pending Neutrophils % Pending Nucleated Red Blood Cells # Pending Nucleated Red Blood Cells % Pending Platelet Count 62 #L Red Blood Count 3.81 L Red Cell Distribution Width 18.7 H White Blood Count 3.7 L Ammonia 25 Anion Gap 17 H Blood Urea Nitrogen 59 H Calcium Level 8.0 L Carbon Dioxide Level 23 Chloride Level 100 Creatinine 3.28 H Glucose Level 178 Potassium Level 3.8 Sodium Level 136 Medications Medications Current Medications Allopurinol (Zyloprim) 200 mg DAILY PO ; Start 07/09/16 at 09:00 Aspirin (Aspirin) 81 mg DAILY PO ; Start 07/09/16 at 09:00 Atorvastatin Calcium (Lipitor) 80 mg QHS PO ; Start 07/09/16 at 21:00 Carvedilol (Coreg) 25 mg BID PO ; Start 07/09/16 at 09:00 Insulin Glargine (Lantus) 24 unit QHS SC ; Start 07/09/16 at 21:00 Losartan Potassium (Cozaar) 100 mg DAILY PO ; Start 07/09/16 at 09:00; Status Future Hold Rifaximin (Xifaxan) 550 mg BID PO ; Start 07/09/16 at 09:00 Senna (Senokot) 1 tab DAILY PRN PO CONSTIPATION; Start 07/09/16 at 05:30 Tamsulosin HCl (Flomax) 0.4 mg HS PO ; Start 07/09/16 at 21:00 Diagnostic Test (Pha) (Accucheck) 1 ea 02 XX Last administered on 07/12/16 01: 37; Admin Dose 1 EA; Start 07/10/16 at 02:00 Miscellaneous Information 1 ea NOTE XX ; Start 07/09/16 at 06:00 Glucose (Glutose) 15 gm Q15M PRN PO DECREASED GLUCOSE; Start 07/09/16 at 06:00 Glucose (Glutose) 22.5 gm Q15M PRN PO DECREASED GLUCOSE; Start 07/09/16 at 06: 00 Dextrose (D50w Syringe) 25 ml Q15M PRN IV DECREASED GLUCOSE; Start 07/09/16 at 06:00 Dextrose (D50w Syringe) 50 ml Q15M PRN IV DECREASED GLUCOSE; Start 07/09/16 at 06:00 Glucagon (Glucagen) 1 mg Q15M PRN IM DECREASED GLUCOSE; Start 07/09/16 at 06:00 Glucose (Glutose) 15 gm Q15M PRN BUCCAL DECREASED GLUCOSE; Start 07/09/16 at 06 :00 Diagnostic Test (Pha) (Accucheck) 1 ea 02 XX Last administered on 07/12/16 01: 38; Admin Dose 1 EA; Start 07/10/16 at 02:00 Lactulose 100 ml 100 ml Q8 [place] Last administered on 07/10/16 06:44; Admin Dose 100 ML; Start 07/09/16 at 22:00; Status Future Hold Clindamycin HCl/ Dextrose (Cleocin 300 Mg/ D5W (Pmx)) 50 ml @ 100 mls/hr Q8 IVPB Last administered on 07/12/16 05:53; Admin Dose 100 MLS/HR; Start at 14:00 Insulin Aspart (Novolog Insulin Pen) NOVOLOG *MILD* ALGORITHM Q4 SC Last administered on 07/12/16 08:24; Admin Dose 2 UNIT; Start 07/11/16 at 13:00 Heparin Sodium (Porcine) (Heparin (5000 Units/0.5 ml)) 5,000 unit BID SC Last administered on 07/12/16 08:23; Admin Dose 5,000 UNIT; Start 07/11/16 at 21:00 Pantoprazole (Protonix Iv) 40 mg DAILY@06 IV Last administered on 07/12/16 05: 47; Admin Dose 40 MG; Start 07/12/16 at 06:00 Lorazepam 0.5 mg 0.5 mg Q6H PRN IV AGITATION Last administered on 07/11/16 14: 55; Admin Dose 0.5 MG; Start 07/11/16 at 15:00 Dextrose/Sodium Chloride (D5-1/2ns) 1,000 ml @ 60 mls/hr [id number] IV Last administered on 07/12/16 08:21; Admin Dose 60 MLS/HR; Start 07/11/16 at 15:00 JOSH HORTON Jul 12, 2016 10:03
[2016-07-12 10:21] LABS: LYMPHOCYTES # 0.5 10^3/ul (0.8-2.9); MONOCYTE # 0.4 10^3/ul (0.3-0.9); NEUTROPHIL # 2.7 10^3/ul (1.6-7.5)
--- NOTE | 2016-07-12 11:00 | CONS ---
Date/Time of Note Date/Time of Note DATE: 07/12/16 TIME: 10:59 Assessment/Plan Assessment/Plan Additional Assessment/Plan 1. Altered mentation, likely from hepatic encephalopathy given elevated ammonia , stable. 2. Reported pneumonia per outside hospital x-ray. 3. End-stage renal disease on dialysis. 4. Diabetes. 5. Hypertension. 6. Coronary artery disease with history of coronary artery bypass graft. 7. BPH. 8. History of left foot ischemic change/gangrene. Plan: HD ordered for Wednesday pt gets HD on MWF BP stable pt failed swallow evaluation so discharge plan is cancelled Consultation Date/Type/Reason Admit Date/Time Jul 09, 2016 at 03:38 Type of Consultation: NEPHROLOGY Referring Provider: DODIE LEIGH MD Exam/Review of Systems Vital Signs Vitals Vital Signs Date Time Temp Pulse Resp B/P Pulse Ox O2 Delivery O2 Flow Rate FiO2 07/12/16 08:32 69 07/12/16 08:00 Nasal Cannula 4.0 07/12/16 07:05 97.9 18 141/65 97 Intake and Output 07/11/16 07/11/16 07/12/16 15:00 23:00 07:00 Intake Total 50 ml 570 ml Output Total 50 ml Balance 50 ml 520 ml Exam GENERAL: The patient is awake, alert, not in any acute respiratory distress. VITAL SIGNS: Stable. HEENT: Head is atraumatic, normocephalic. Pupils equal, reactive. NECK: Supple. LUNGS: Clear CARDIOVASCULAR: S1, S2 normal. Systolic murmur. ABDOMEN: Soft, nontender. Bowel sounds present. No palpable mass or hepatosplenomegaly. EXTREMITIES: There is no cyanosis, clubbing, or edema. The patient has no edema, the patient has left BKA. Results Result Diagram: 07/12/16 0554 07/12/16 0555 Results 24 hrs Laboratory Tests Test 07/11/16 11:23 07/11/16 17:45 07/11/16 21:16 07/12/16 01:34 Bedside Glucose 126 185 154 161 Test 07/12/16 05:46 07/12/16 05:54 07/12/16 05:55 Bedside Glucose 179 Band Neutrophils % 1.0 Basophils # Basophils % Blood Morphology Comment Differential Comment MANUAL DIFF Eosinophils # 0.0 Eosinophils % 1.0 Hematocrit 33.9 L Hemoglobin 11.4 L Lymphocytes # 0.5 L Lymphocytes % 14.0 L Mean Corpuscular Hemoglobin 30.0 Mean Corpuscular Hemoglobin Concent 33.7 Mean Corpuscular Volume 89.1 Mean Platelet Volume 10.6 H Monocytes # 0.4 Monocytes % 10.0 Neutrophils # 2.7 Neutrophils % 74.0 Nucleated Red Blood Cells # Nucleated Red Blood Cells % Platelet Count 62 #L Red Blood Count 3.81 L Red Cell Distribution Width 18.7 H White Blood Count 3.7 L Ammonia 25 Anion Gap 17 H Blood Urea Nitrogen 59 H Calcium Level 8.0 L Carbon Dioxide Level 23 Chloride Level 100 Creatinine 3.28 H Glucose Level 178 Potassium Level 3.8 Sodium Level 136 Medications Medications Current Medications Allopurinol (Zyloprim) 200 mg DAILY PO ; Start 07/09/16 at 09:00 Aspirin (Aspirin) 81 mg DAILY PO ; Start 07/09/16 at 09:00 Atorvastatin Calcium (Lipitor) 80 mg QHS PO ; Start 07/09/16 at 21:00 Carvedilol (Coreg) 25 mg BID PO ; Start 07/09/16 at 09:00 Insulin Glargine (Lantus) 24 unit QHS SC ; Start 07/09/16 at 21:00 Losartan Potassium (Cozaar) 100 mg DAILY PO ; Start 07/09/16 at 09:00; Status Future Hold Rifaximin (Xifaxan) 550 mg BID PO ; Start 07/09/16 at 09:00 Senna (Senokot) 1 tab DAILY PRN PO CONSTIPATION; Start 07/09/16 at 05:30 Tamsulosin HCl (Flomax) 0.4 mg HS PO ; Start 07/09/16 at 21:00 Diagnostic Test (Pha) (Accucheck) 1 ea 02 XX Last administered on 07/12/16t 01: 37; Admin Dose 1 EA; Start 07/10/16 at 02:00 Miscellaneous Information 1 ea NOTE XX ; Start 07/09/16 at 06:00 Glucose (Glutose) 15 gm Q15M PRN PO DECREASED GLUCOSE; Start 07/09/16 at 06:00 Glucose (Glutose) 22.5 gm Q15M PRN PO DECREASED GLUCOSE; Start 07/09/16 at 06: 00 Dextrose (D50w Syringe) 25 ml Q15M PRN IV DECREASED GLUCOSE; Start 07/09/16 at 06:00 Dextrose (D50w Syringe) 50 ml Q15M PRN IV DECREASED GLUCOSE; Start 07/09/16 at 06:00 Glucagon (Glucagen) 1 mg Q15M PRN IM DECREASED GLUCOSE; Start 07/09/16 at 06:00 Glucose (Glutose) 15 gm Q15M PRN BUCCAL DECREASED GLUCOSE; Start 07/09/16 at 06 :00 Diagnostic Test (Pha) (Accucheck) 1 ea 02 XX Last administered on 07/12/16 01: 38; Admin Dose 1 EA; Start 07/10/16 at 02:00 Lactulose 100 ml 100 ml Q8 [place] Last administered on 07/10/16 06:44; Admin Dose 100 ML; Start 07/09/16 at 22:00; Status Future Hold Clindamycin HCl/ Dextrose (Cleocin 300 Mg/ D5W (Pmx)) 50 ml @ 100 mls/hr Q8 IVPB Last administered on 07/12/16 05:53; Admin Dose 100 MLS/HR; Start at 14:00 Insulin Aspart (Novolog Insulin Pen) NOVOLOG *MILD* ALGORITHM Q4 SC Last administered on 07/12/16 08:24; Admin Dose 2 UNIT; Start 07/11/16 at 13:00 Heparin Sodium (Porcine) (Heparin (5000 Units/0.5 ml)) 5,000 unit BID SC Last administered on 07/12/16 08:23; Admin Dose 5,000 UNIT; Start 07/11/16 at 21:00 Pantoprazole (Protonix Iv) 40 mg DAILY@06 IV Last administered on 07/12/16 05: 47; Admin Dose 40 MG; Start 07/12/16 at 06:00 Lorazepam 0.5 mg 0.5 mg Q6H PRN IV AGITATION Last administered on 07/11/16 14: 55; Admin Dose 0.5 MG; Start 07/11/16 at 15:00 Dextrose/Sodium Chloride (D5-1/2ns) 1,000 ml @ 60 mls/hr [id number] IV Last administered on 07/12/16 08:21; Admin Dose 60 MLS/HR; Start 07/11/16 at 15:00 OLGA KILPATRICK MD Jul 12, 2016 11:00
[2016-07-12] MEDS: INSULIN GLARGINE [LANtus] 3 ML PEN SC SCH (20:32)
[2016-07-12] MEDS: TAMSULOSIN (SR) 0.4 MG CAP PO SCH (20:32)
[2016-07-12] MEDS: ATORVASTATIN 80 MG TAB PO SCH (20:32)
[2016-07-13] VITALS (18 sets, daily range): BP systolic 123–158; BP diastolic 58–79; PULSE 66–86; RESP 18–23
[2016-07-13] MEDS: INSULIN ASPART [NOVOLOG] 3 ML PEN SC SCH ×10 (00:35→21:00)
[2016-07-13] MEDS: ACCUCHECK AT 2AM (Patients on SS coverage) XX SCH (01:57)
[2016-07-13] MEDS: ACCUCHECK XX SCH (01:57)
[2016-07-13] MEDS ORDERED: HALOPERIDOL 5 MG INJ IM ONE (03:30)
[2016-07-13] MEDS: DEXTROSE 5%-0.45% NACL 1,000 ML IV SCH ×3 (04:03→23:26)
[2016-07-13] MEDS: PANTOPRAZOLE 40 MG INJ IV SCH (05:37)
[2016-07-13] MEDS: CLINDAMYCIN 300 MG/D5W (PMX) 50 ML IVPB SCH ×3 (05:38→21:55)
[2016-07-13 06:47] LABS: BASOPHILS % 0.4 % (0.0-2.0); EOSINOPHILS % 1.6 % (0.0-7.0); HEMATOCRIT 31.3 % (42.0-52.0); HEMOGLOBIN 10.6 g/dl (14.0-18.0); LYMPHOCYTES # 0.7 10^3/ul (0.8-2.9); LYMPHOCYTES % 24.7 % (15.0-51.0); MEAN CORPUSCULAR HEMOGLOBIN 30.4 pg (29.0-33.0); MEAN CORPUSCULAR VOLUME 89.3 fl (82.0-101.0); MEAN PLATELET VOLUME 9.7 fl (7.4-10.4); MONOCYTE # 0.3 10^3/ul (0.3-0.9); MONOCYTES % 9.7 % (0.0-11.0); NEUTROPHIL # 1.8 10^3/ul (1.6-7.5); NEUTROPHILS % 63.6 % (39.0-77.0); PLATELET COUNT 84 10^3/UL (140-440); RED CELL DISTRIBUTION WIDTH 18.3 % (11.5-14.5); UNCORRECTED WBC 2.8 10^3/ul (4.8-10.8); WHITE BLOOD COUNT 2.8 10^3/ul (4.8-10.8)
[2016-07-13 06:50] LABS: POTASSIUM 3.5 mmol/L (3.5-5.1)
[2016-07-13 06:53] LABS: CREATININE 3.3 mg/dl (0.61-1.24)
[2016-07-13 06:54] LABS: CALCIUM 7.8 mg/dl (8.4-10.2)
[2016-07-13 06:55] LABS: CONDITION 1; LH ANALYZER COMMENTS 1
[2016-07-13] MEDS: CALCIUM ACETATE 667 MG CAP PO SCH ×3 (07:55→17:12)
[2016-07-13] MEDS: ASPIRIN 81 MG TAB PO SCH (08:03)
[2016-07-13] MEDS: RIFAXIMIN 550 MG TAB PO SCH ×2 (08:03→21:00)
[2016-07-13] MEDS: ALLOPURINOL 100 MG TAB PO SCH (08:04)
[2016-07-13] MEDS: HEPARIN 5,000 UNIT/0.5 ML SYG SC SCH (09:00)
[2016-07-13] MEDS: ALBUTEROL/IPRATROPIUM (NEB) 3 ML AMP HHN PRN (13:25)
--- NOTE | 2016-07-13 16:15 | CONS ---
Date/Time of Note Date/Time of Note DATE: 07/13/16 TIME: 16:14 Assessment/Plan Assessment/Plan Chief Complaint/Hosp Course IMPRESSION: 1. Altered mental status.better 2. Pneumonia. 3. Urinary tract infection. 4. End-stage renal disease. 5. Diabetes mellitus. 6. Cirrhosis of the liver. 7. Hypertension. 8. Coronary artery disease. 9. Dementia status post hypotension. 10. The patient has a left below-knee amputation. 11. Atherosclerotic heart disease. 12. The patient also has old cerebrovascular accident. plan hd Problems: Consultation Date/Type/Reason Admit Date/Time Jul 09, 2016 at 03:38 Type of Consultation: NEPHROLOGY Referring Provider: DODIE LEIGH MD 24 HR Interval Summary Constitutional: no complaints Exam/Review of Systems Vital Signs Vitals Vital Signs Date Time Temp Pulse Resp B/P Pulse Ox O2 Delivery O2 Flow Rate FiO2 07/13/16 16:00 70 07/13/16 14:30 18 07/13/16 13:28 94 Nasal Cannula 4.0 07/13/16 11:52 97.8 136/61 Intake and Output 07/12/16 07/12/16 07/13/16 15:00 23:00 07:00 Intake Total 50 ml 620 ml Output Total 100 ml 300 ml Balance -50 ml 320 ml Exam Respiratory: clear to auscultation Cardiovascular: regular rate and rhythm Gastrointestinal: soft Musculoskeletal: nl extremities to inspection Results Result Diagram: 07/13/16 0528 07/13/16 0528 Results 24 hrs Laboratory Tests Test 07/12/16 17:18 07/12/16 20:27 07/13/16 00:25 07/13/16 05:28 Bedside Glucose 152 77 124 Anion Gap 18 H Basophils # 0.0 Basophils % 0.4 Blood Morphology Comment Blood Urea Nitrogen 65 H Calcium Level 7.8 L Carbon Dioxide Level 21 Chloride Level 102 Creatinine 3.30 H Eosinophils # 0.0 Eosinophils % 1.6 Glucose Level 185 Hematocrit 31.3 L Hemoglobin 10.6 L Lymphocytes # 0.7 L Lymphocytes % 24.7 Mean Corpuscular Hemoglobin 30.4 Mean Corpuscular Hemoglobin Concent 34.0 Mean Corpuscular Volume 89.3 Mean Platelet Volume 9.7 Monocytes # 0.3 Monocytes % 9.7 Neutrophils # 1.8 Neutrophils % 63.6 Nucleated Red Blood Cells # 0.0 Nucleated Red Blood Cells % 0.0 Platelet Count 84 #L Potassium Level 3.5 Red Blood Count 3.50 L Red Cell Distribution Width 18.3 H Sodium Level 137 White Blood Count 2.8 #L Test 07/13/16 05:39 07/13/16 07:54 07/13/16 12:22 Bedside Glucose 169 201 160 Medications Medications Current Medications Allopurinol (Zyloprim) 200 mg DAILY PO ; Start 07/09/16 at 09:00 Aspirin (Aspirin) 81 mg DAILY PO ; Start 07/09/16 at 09:00 Atorvastatin Calcium (Lipitor) 80 mg QHS PO ; Start 07/09/16 at 21:00 Carvedilol (Coreg) 25 mg BID PO ; Start 07/09/16 at 09:00 Insulin Glargine (Lantus) 24 unit QHS SC ; Start 07/09/16 at 21:00 Losartan Potassium (Cozaar) 100 mg DAILY PO ; Start 07/09/16 at 09:00; Status Future Hold Rifaximin (Xifaxan) 550 mg BID PO ; Start 07/09/16 at 09:00 Senna (Senokot) 1 tab DAILY PRN PO CONSTIPATION; Start 07/09/16 at 05:30 Tamsulosin HCl (Flomax) 0.4 mg HS PO ; Start 07/09/16 at 21:00 Diagnostic Test (Pha) (Accucheck) 1 ea 02 XX Last administered on 07/12/16t 01: 37; Admin Dose 1 EA; Start 07/10/16 at 02:00 Miscellaneous Information 1 ea NOTE XX ; Start 07/09/16 at 06:00 Glucose (Glutose) 15 gm Q15M PRN PO DECREASED GLUCOSE; Start 07/09/16 at 06:00 Glucose (Glutose) 22.5 gm Q15M PRN PO DECREASED GLUCOSE; Start 07/09/16 at 06: 00 Dextrose (D50w Syringe) 25 ml Q15M PRN IV DECREASED GLUCOSE; Start 07/09/16 at 06:00 Dextrose (D50w Syringe) 50 ml Q15M PRN IV DECREASED GLUCOSE; Start 07/09/16 at 06:00 Glucagon (Glucagen) 1 mg Q15M PRN IM DECREASED GLUCOSE; Start 07/09/16 at 06:00 Glucose (Glutose) 15 gm Q15M PRN BUCCAL DECREASED GLUCOSE; Start 07/09/16 at 06 :00 Diagnostic Test (Pha) (Accucheck) 1 ea 02 XX Last administered on 07/12/16 01: 38; Admin Dose 1 EA; Start 07/10/16 at 02:00 Lactulose 100 ml 100 ml Q8 [place] Last administered on 07/10/16 06:44; Admin Dose 100 ML; Start 07/09/16 at 22:00; Status Future Hold Clindamycin HCl/ Dextrose (Cleocin 300 Mg/ D5W (Pmx)) 50 ml @ 100 mls/hr Q8 IVPB Last administered on 07/13/16 13:31; Admin Dose 100 MLS/HR; Start at 14:00 Insulin Aspart (Novolog Insulin Pen) NOVOLOG *MILD* ALGORITHM Q4 SC Last administered on 07/12/16 17:24; Admin Dose 1 UNIT; Start 07/11/16 at 13:00 Heparin Sodium (Porcine) (Heparin (5000 Units/0.5 ml)) 5,000 unit BID SC Last administered on 07/12/16 20:36; Admin Dose 5,000 UNIT; Start 07/11/16 at 21:00 Pantoprazole (Protonix Iv) 40 mg DAILY@06 IV Last administered on 07/13/16 05: 37; Admin Dose 40 MG; Start 07/12/16 at 06:00 Lorazepam 0.5 mg 0.5 mg Q6H PRN IV AGITATION Last administered on 07/11/16 14: 55; Admin Dose 0.5 MG; Start 07/11/16 at 15:00 Dextrose/Sodium Chloride (D5-1/2ns) 1,000 ml @ 60 mls/hr [id number] IV Last administered on 07/13/16 04:03; Admin Dose 60 MLS/HR; Start 07/11/16 at 15:00 DEJAH JORDAN MD Jul 13, 2016 16:15
[2016-07-13] MEDS: ALBUTEROL/IPRATROPIUM (NEB) 3 ML AMP HHN SCH ×2 (19:12→21:05)
--- NOTE | 2016-07-13 19:13 | RADRPT ---
PROCEDURE: XR Chest 1 View. CLINICAL INDICATION: Shortness of breath TECHNIQUE: AP view of the chest were obtained. COMPARISON: December 07, 2016 FINDINGS: The heart size is within normal limits. Calcified atherosclerosis is noted in the aorta. Median emily rnotomy wires overlie the heart. Right-sided dialysis catheter is stable. Left perihilar and lower lung infiltrates combined with small pleural effusion are stable, given differences in technique. Patchy infiltrates in the periphery of the right lower lobe are stable. Osseous structures are intac t. IMPRESSION: Calcified atherosclerosis in the aorta. Stable left perihilar and lower lung infiltrates combined with small left pleural effusion. Stable patchy infiltrates in the periphery of the right lower lobe. RPTAT: AA .Murtaza Baires MD, MD Date Time Electronically viewed and signed by .Murtaza Baires MD, on 07/13/2016 19:13 .P/
[2016-07-13 19:31] LABS: AADO2 Arterial 60.3 mmHg (7.0-24.0); Allen Test ACCEPTAB; Arterial Base Excess 2.6 mmol/L (-3.0-3); Arterial COHb 0.1 % (0.0-3.0); Arterial Fraction of Oxyhgb 84.7 % (93.0-99.0); Arterial HCO3 25.7 mmol/L (22.0-26.0); Arterial MetHb 0.2 % (0.0-1.5); Arterial Total Hemglobin 12.7 g/dl (12.0-18.0); MODE ROOM AIR
[2016-07-13] MEDS: ATORVASTATIN 80 MG TAB PO SCH (21:00)
[2016-07-13] MEDS: TAMSULOSIN (SR) 0.4 MG CAP PO SCH (21:00)
[2016-07-13] MEDS: INSULIN GLARGINE [LANtus] 3 ML PEN SC SCH (22:48)
[2016-07-13] MEDS: LORAZEPAM 2 MG INJ IV PRN (23:27)
[2016-07-14] VITALS (12 sets, daily range): BP systolic 113–148; BP diastolic 46–65; PULSE 70–87; RESP 16–21
[2016-07-14] MEDS: INSULIN ASPART [NOVOLOG] 3 ML PEN SC SCH ×10 (01:00→21:00)
[2016-07-14] MEDS: ALBUTEROL/IPRATROPIUM (NEB) 3 ML AMP HHN SCH ×6 (01:27→20:30)
[2016-07-14] MEDS: ACCUCHECK AT 2AM (Patients on SS coverage) XX SCH (02:00)
[2016-07-14] MEDS: ACCUCHECK XX SCH (02:00)
--- NOTE | 2016-07-14 04:25 | PN ---
DATE: 07/13/2016 SUBJECTIVE: The patient was seen multiple times today; the first time during dialysis and the secon d time after dialysis with his daughter at the bedside. The daughter had concerns about she wants t o feed her father, and despite us notifying her that her father has been determined unsafe for oral feeds, the patient's daughter continues to feel her father at the bedside. However, I spoke in [facility] with the patient's daughter in person and with his son over the telephone, and we notified them t hat we had to make a decision regarding long-term feeding. Family is still unwilling to place a PEG tube now and pushing more for oral feeds; however, after speaking with the speech therapy, they do strongly recommend against this based on a video modified barium swallow that was done 07/11/2016 th at continues to show penetration and aspiration. I advised the patient's daughter that if she gisselle nues to feed her father on her own, the consequences might be fatal, and I told her that if the kourtney ent was n.p.o. by our recommendations, we really do not like it if the patient's family comes in and feeds the patient. I do not know if she will comply with this. OBJECTIVE: VITAL SIGNS: Temperature 97.7, pulse 86, respirations 18, blood pressure 129/63, saturations 96%. The patient is to require oxygen via nasal cannula at 5 liters per minute. GENERAL: The patient did look uncomfortable since he was doing a lot of work to breathe, but he was alert. We could not speak in full sentences. He is very frail and cachectic. HEENT: Head is normocephalic. Pupils are equal and reactive. He has slight scleral icterus. Muco us membranes were somewhat dry. NECK: Supple. CHEST: He has severely reduced air entry bilaterally. He does have some upper airway crackles. CARDIOVASCULAR: He had an irregularly irregular pulse and a systolic murmur. ABDOMEN: Distended, soft, with normoactive bowel sounds. EXTREMITIES: He had trace extremity edema bilaterally. LABORATORY DATA: His creatinine the day prior to dialysis was 3.3, calcium 7.8, blood glucose 185. Otherwise, the BMP was unremarkable. Whereas his WBC count continues to drop. It is down to 2.8 t [place]. Hemoglobin is 10. He has normocytic normochromic indices and is also thrombocytopenic at 84 which puts him at being pancytopenic. I ordered a stat chest x-ray which I will review once availab le; however, his chest x-ray from 07/09/2016 did show right and mid lower lung zone atelectasis or p neumonia, dialysis catheter tip in the cavoatrial junction, mild cardiomegaly, previous median yoder otomy, atherosclerosis, and moderate-sized left pleural effusion. ASSESSMENT: A 75-year-old male with 1. Acute respiratory distress, likely secondary to #2. 2. Right-sided mid and lower lobe pneumonia, likely secondary to aspiration. 3. Altered mental status, improving per report 4. Urinary tract infection. 5. End-stage renal disease on hemodialysis. 6. Diabetes mellitus type 2 with suboptimal control. 7. Liver cirrhosis. 8. Moderate size right-sided pleural effusion, likely contributing to respiratory distress. 9. Hypertension with good control. 10. Known coronary artery disease status post coronary artery bypass surgery. 11. Left below knee amputation. 12. Previous cerebrovascular accident. PLAN: At this time, this patient does look very uncomfortable. We will be ordering a 2-D echo to a ssess his coronary status and also get pulmonary consultation. In the interim, I will go ahead and order a thoracentesis if okay with pulmonary. Again, I have counseled the daughter on the need to c omply with our instructions until it is safe for her father to eat. Meanwhile, I will continue n.p. o. per speech therapy recommendations. At this point, the patient is not safe to have a PEG tube pr ocedure anyway. Clinically he is unstable. Unfortunately multiple attempts to put in an NG tube velásquez ve been unsuccessful. The patient has been on hospice therapy in the past. This might need to be a n option for him again. In the interim, hopefully he will improve respiratory monreal after his parace ntesis, and we will go from there. We will also continue scheduled bronchodilator therapy and see w hat pulmonary recommends as well. I spoke for a long time with the family, the daughter, and the so n. I have answered questions as much as possible. Overall prognosis remains guarded. For prophyla xis, I am going to hold the heparin as the patient is pancytopenic, and he will be on SCDs on his le ft lower extremity only. For GI prophylaxis, he continues on IV Protonix. Dictated By: JADE NASCIMENTO MD, BA/MAYANK Conf#: [id number] DID#: [id number]
[2016-07-14] MEDS: CLINDAMYCIN 300 MG/D5W (PMX) 50 ML IVPB SCH ×3 (06:13→21:36)
[2016-07-14] MEDS: PANTOPRAZOLE 40 MG INJ IV SCH (06:13)
[2016-07-14] MEDS: CALCIUM ACETATE 667 MG CAP PO SCH ×3 (07:55→17:55)
[2016-07-14 08:38] LABS: CREATININE 2.28 mg/dl (0.61-1.24)
[2016-07-14 08:39] LABS: CALCIUM 7.8 mg/dl (8.4-10.2)
[2016-07-14 08:40] LABS: POTASSIUM 2.7 mmol/L (3.5-5.1)
[2016-07-14] MEDS: RIFAXIMIN 550 MG TAB PO SCH ×2 (09:00→21:00)
[2016-07-14] MEDS: ASPIRIN 81 MG TAB PO SCH (09:00)
[2016-07-14] MEDS: ALLOPURINOL 100 MG TAB PO SCH (09:00)
[2016-07-14 09:32] LABS: BASOPHILS % 0.7 % (0.0-2.0); EOSINOPHILS # 0.1 10^3/ul (0.0-0.5); EOSINOPHILS % 2.2 % (0.0-7.0); HEMATOCRIT 31.5 % (42.0-52.0); HEMOGLOBIN 10.5 g/dl (14.0-18.0); LYMPHOCYTES # 0.6 10^3/ul (0.8-2.9); LYMPHOCYTES % 18.2 % (15.0-51.0); MEAN CORPUSCULAR HEMOGLOBIN 29.8 pg (29.0-33.0); MEAN CORPUSCULAR HGB CONC 33.4 g/dl (32.0-37.0); MEAN CORPUSCULAR VOLUME 89.4 fl (82.0-101.0); MEAN PLATELET VOLUME 10.1 fl (7.4-10.4); MONOCYTE # 0.4 10^3/ul (0.3-0.9); NEUTROPHIL # 2.3 10^3/ul (1.6-7.5); NEUTROPHILS % 66.9 % (39.0-77.0); PLATELET COUNT 91 10^3/UL (140-440); RED BLOOD COUNT 3.53 10^6/ul (4.70-6.10); RED CELL DISTRIBUTION WIDTH 17.9 % (11.5-14.5); UNCORRECTED WBC 3.4 10^3/ul (4.8-10.8); WHITE BLOOD COUNT 3.4 10^3/ul (4.8-10.8)
[2016-07-14 09:35] LABS: CONDITION 1; LH ANALYZER COMMENTS 1
[2016-07-14] MEDS ORDERED: POTASSIUM CHLORIDE 250 ML IVPB ONE (11:00)
--- NOTE | 2016-07-14 11:06 | RADRPT ---
Echocardiogram Report Patient Name: TOYA RIVERA Gender: Male Date: 1940 Study Date: 14-Jul-2016 Computer Information Science Professor: Kareen Palafox [facility] Location: 522 Ref. Physician: JADE NASCIMENTO Quality: Technically Difficult Study Procedures: Transthoracic echocardiogram with complete 2D, M-Mode, and doppler examination. Indications: Shortness of breath. 2D/M Mode Doppler Measurement Value Normal Ranges Measurement Value Normal Ranges LVIDd 2D 4.4 3.5 - 5.6 cm AV Peak Robert 2.1 m/sec LVIDs 2D 3.7 2.1 - 4.1 cm AV Peak PG 18.1 mmHg LVPWd 2D 1.3 0.6 - 1.1 cm LVOT Peak Robert 0.6 m/sec IVSd 2D 1.3 0.6 - 1.1 cm LVOT Peak PG 1.5 mmHg AoR Diam 2D 3.3 2.0 - 3.7 cm MV E Peak Robert 0.8 m/sec EDV 2D 86.6 cm3 MV A Peak Robert 0.9 m/sec ESV 2D 51.4 cm3 MV E/A 1.0 LA Dimen 2D 3.7 2.3 - 4.0 cm MV Decel Time 212 msec MV Decel [place] 4 MV E/A 1.0 TR Peak Robert 2.4 m/sec TR Peak PG 23.5 mmHg RVSP 26.0 mmHg Findings Left Ventricle: Normal left ventricular cavity size. Mild concentric left ventricular hypertrophy. Mild left ventricular systolic dysfunction. Ejection fraction is visually estimated at 45 %. These segments of the LV are hypokinetic inferior mid segment, inferior apex segment and inferior base segment. Right Ventricle: Normal right ventricular size. Normal right ventricular systolic function. Left Atrium: The left atrium is normal in size. Right Atrium: The right atrium is normal in size. Mitral Valve: Mitral valve leaflets appear mildly thickened. Mild mitral annular calcification. Mild mitral valve regurgitation. Aortic Valve: No significant aortic stenosis or insufficiency. Aortic cusps appear mildly calcified. Tricuspid Valve: Estimated peak PA systolic pressure 26 mmHg. There is mild tricuspid regurgitation. Pericardium: Normal pericardium with no significant pericardial effusion. Aorta: Normal aortic root. IVC: Normal size and normal respiratory collapse consistent with normal right atrial pressure. Conclusions 1.Normal left ventricular cavity size. Mild concentric left ventricular hypertrophy. Mild left ventricular systolic dysfunction. Ejection fraction is visually estimated at 45 %. These segments of the LV are hypokinetic inferior mid segment, inferior apex segment and inferior base segment. 2.The left atrium is normal in size. 3.No significant aortic stenosis or insufficiency. Aortic cusps appear mildly calcified. 4.Mitral valve leaflets appear mildly thickened. Mild mitral annular calcification. Mild mitral valve regurgitation. 5.Estimated peak PA systolic pressure 26 mmHg. There is mild tricuspid regurgitation. 6.Normal size and normal respiratory collapse consistent with normal right atrial pressure. Electronically Signed By: Jorge L Infante 14-Jul-2016 11:05:20 -0800 Patient Name: TOYA RIVERA Study Date: 14-Jul-2016 [id number]
--- NOTE | 2016-07-14 11:46 | PN ---
DATE: 07/14/2016 This is a 75-year-old man who was admitted to [facility] on 07/09/2016. He has a complicated past medical history; however, issues at this time are he has encephalopathy secondary t o elevated ammonia levels. His mental status has not improved significantly since he has been here. He has a history of end-stage renal disease on hemodialysis. He is high risk of aspiration and velásquez s failed speech therapy and still aspirates at this time. In addition, his daughter continues to fe ed him when medical health care team are not in patient's room. In addition, he requires intermitte nt BiPAP and family would like to take him home. The patient is a candidate for hospice care; [facility], only if his family withdraws hemodialysis which they have refused to do. They are insistent blanka t he eats. They have refused a G-tube and patient is high risk for aspiration. He requires BiPAP i ntermittently and although he could go home with BiPAP, he wants hospice care. Once again, he is no t a candidate with the patient still on hemodialysis and BiPAP is not administered at home with home health care. I have scheduled a meeting to speak to patient's daughter. All of the above issues w ill be brought up and I will speak to her concerning her options. Possibly the best treatment appro ach and long-term plans are senior living unit with a G-tube if family will agree to this. I do n ot see many other options at this point, and will have to explain to them that there are other optio ns. The patient is high risk for aspiration and eventually, if he continues to do, so will develop some catastrophic illness. He is a FULL CODE. I will find family members. I understand the daught er does visit the patient frequently. I have called her this morning and scheduled a meeting with er at 10:30, it is now 1100, and she has not shown up to the hospital. I will continue to try and c ontact her. Dictated By: ASHWIN MCKEON MD, LP/MAYANK Conf#: [id number] DID#: [id number]
[2016-07-14 12:37] LABS: INR 1.24; PROTIME 15.7 Sec (12.2-14.2); PT RATIO 1.2
--- NOTE | 2016-07-14 14:08 | PN ---
Date/Time of Note Date/Time of Note DATE: 07/14/16 TIME: 14:04 Assessment/Plan VTE Prophylaxis VTE Prophylaxis Intervention: SCD's Lines/Catheters IV Catheter Type (from Nrs): Peripheral IV Urinary Cath still in place: Yes Reason Cath still needed: other (indicate) (not needed, d/c olivas) Assessment/Plan Assessment/Plan A 75-year-old male with 1. Acute respiratory distress, likely secondary to #2. 2. Right-sided mid and lower lobe pneumonia, likely secondary to aspiration. 3. Altered mental status, improving per report 4. Urinary tract infection. 5. End-stage renal disease on hemodialysis. 6. Diabetes mellitus type 2 with suboptimal control. 7. Liver cirrhosis. 8. Moderate size right-sided pleural effusion, likely contributing to respiratory distress. 9. Hypertension with good control. 10. Known coronary artery disease status post coronary artery bypass surgery. 11. Left below knee amputation. 12. Previous cerebrovascular accident. Dispo: planned for L sided thoracentesis today Continue supportive care Continue NPO Possible d/c on abx once his resp status improves and family may proceed with feeding options of their choice as outpt. Will reevaluate Further evaluation and treatment will be based on clinical course Full discussion with care team done. All questions Answered Please also see orders. Subjective 24 Hr Interval Summary Free Text/Dictation Patient seen and examined. visibly more comfortable and sleeping comfortably Family not at bedside Spoke with ST and Palliative care docs Exam/Review of Systems Vital Signs Vitals Vital Signs Date Time Temp Pulse Resp B/P Pulse Ox O2 Delivery O2 Flow Rate FiO2 07/14/16 13:29 97 4.0 07/14/16 13:28 71 20 Nasal Cannula 07/14/16 12:00 97.2 113/46 07/14/16 04:30 21 Intake and Output 07/13/16 07/13/16 07/14/16 15:00 23:00 07:00 Intake Total 1320 ml Output Total 3000 ml Balance -1680 ml Exam Constitutional: frail, other (sleeping fairly comfortably) Head: normocephalic Eyes: icteric (mild) Respiratory: diminished breath sounds, labored breathing (mild), wheezing Cardiovascular: irregular rhythm, murmurs/extra sounds Gastrointestinal: bowel sounds, soft Musculoskeletal: other (L BKA) Extremities: No edema Results Result Diagram: 07/14/16 0710 07/14/16 0710 Results 24 hrs Laboratory Tests Test 07/13/16 17:03 07/13/16 18:55 07/13/16 20:57 07/14/16 02:05 Bedside Glucose 153 223 H 197 Arterial Blood HCO3 25.7 Arterial Blood Base Excess 2.6 Arterial Blood Oxygen Saturation 85.0 L Bharath Test ACCEPTAB Arterial Blood Gas Puncture Site Left HEEL Arterial Blood Carboxyhemoglobin 0.1 Arterial Blood Date Drawn 07/13/2016 7:16:02 PM Arterial Blood Methemoglobin 0.2 Arterial Blood pCO2 (Temp correct) 34.6 L Arterial Blood pH (Temp corrected) 7.489 H Arterial Blood pO2 (Temp corrected) 48.0 *L Blood Gas A-a O2 Differential 60.3 H Blood Gas Critical Value Read Back Manuel LAMBERT RN Blood Gas Modality ROOM AIR Blood Gas Notified Time 07/13/2016 7:31:10 PM Blood Gas Notified Whom MM Blood Gas Specimen Source Blood arterial Blood Gas Temperature 37.0 FiO2 21.0 Oxyhemoglobin Percent 84.7 L Total Hemoglobin 12.7 Test 07/14/16 05:42 07/14/16 07:10 07/14/16 08:15 07/14/16 11:15 Bedside Glucose 117 113 Anion Gap 14 Basophils # 0.0 Basophils % 0.7 Blood Morphology Comment Blood Urea Nitrogen 34 #H Calcium Level 7.8 L Carbon Dioxide Level 26 Chloride Level 99 Creatinine 2.28 #H Eosinophils # 0.1 Eosinophils % 2.2 Glucose Level 106 # Hematocrit 31.5 L Hemoglobin 10.5 L Lymphocytes # 0.6 L Lymphocytes % 18.2 Mean Corpuscular Hemoglobin 29.8 Mean Corpuscular Hemoglobin Concent 33.4 Mean Corpuscular Volume 89.4 Mean Platelet Volume 10.1 Monocytes # 0.4 Monocytes % 12.0 H Neutrophils # 2.3 Neutrophils % 66.9 Nucleated Red Blood Cells # 0.0 Nucleated Red Blood Cells % 0.0 Platelet Count 91 L Potassium Level 2.7 *L Red Blood Count 3.53 L Red Cell Distribution Width 17.9 H Sodium Level 136 White Blood Count 3.4 #L INR International Normalized Ratio 1.24 Magnesium Level 2.0 Prothrombin Time 15.7 H Prothrombin Time Ratio 1.2 Test 07/14/16 12:42 Bedside Glucose 154 Medications Medications Current Medications Allopurinol (Zyloprim) 200 mg DAILY PO ; Start 07/09/16 at 09:00 Aspirin (Aspirin) 81 mg DAILY PO ; Start 07/09/16 at 09:00 Atorvastatin Calcium (Lipitor) 80 mg QHS PO ; Start 07/09/16 at 21:00 Carvedilol (Coreg) 25 mg BID PO ; Start 07/09/16 at 09:00 Insulin Glargine (Lantus) 24 unit QHS SC Last administered on 07/13/16 22:48; Admin Dose 24 UNIT; Start 07/09/16 at 21:00 Losartan Potassium (Cozaar) 100 mg DAILY PO ; Start 07/09/16 at 09:00; Status Future Hold Rifaximin (Xifaxan) 550 mg BID PO ; Start 07/09/16 at 09:00 Senna (Senokot) 1 tab DAILY PRN PO CONSTIPATION; Start 07/09/16 at 05:30 Tamsulosin HCl (Flomax) 0.4 mg HS PO ; Start 07/09/16 at 21:00 Diagnostic Test (Pha) (Accucheck) 1 ea XX Last administered on 07/12/16 01: 37; Admin Dose 1 EA; Start 07/10/16 at 02:00 Miscellaneous Information 1 ea NOTE XX ; Start 07/09/16 at 06:00 Glucose (Glutose) 15 gm Q15M PRN PO DECREASED GLUCOSE; Start 07/09/16 at 06:00 Glucose (Glutose) 22.5 gm Q15M PRN PO DECREASED GLUCOSE; Start 07/09/16 at 06: 00 Dextrose (D50w Syringe) 25 ml Q15M PRN IV DECREASED GLUCOSE; Start 07/09/16 at 06:00 Dextrose (D50w Syringe) 50 ml Q15M PRN IV DECREASED GLUCOSE; Start 07/09/16 at 06:00 Glucagon (Glucagen) 1 mg Q15M PRN IM DECREASED GLUCOSE; Start 07/09/16 at 06:00 Glucose (Glutose) 15 gm Q15M PRN BUCCAL DECREASED GLUCOSE; Start 07/09/16 at 06 :00 Diagnostic Test (Pha) (Accucheck) 1 ea XX Last administered on 07/12/16 01: 38; Admin Dose 1 EA; Start 07/10/16 at 02:00 Lactulose 100 ml 100 ml Q8 AR Last administered on 07/10/16 06:44; Admin Dose 100 ML; Start 07/09/16 at 22:00; Status Future Hold Clindamycin HCl/ Dextrose (Cleocin 300 Mg/ D5W (Pmx)) 50 ml @ 100 mls/hr Q8 IVPB Last administered on 07/14/16 06:13; Admin Dose 100 MLS/HR; Start at 14:00 Insulin Aspart (Novolog Insulin Pen) NOVOLOG *MILD* ALGORITHM Q4 SC Last administered on 07/12/16 17:24; Admin Dose 1 UNIT; Start 07/11/16 at 13:00 Pantoprazole (Protonix Iv) 40 mg DAILY@06 IV Last administered on 07/14/16 06: 13; Admin Dose 40 MG; Start 07/12/16 at 06:00 Lorazepam 0.5 mg 0.5 mg Q6H PRN IV AGITATION Last administered on 07/13/16 23: 27; Admin Dose 0.5 MG; Start 07/11/16 at 15:00 Dextrose/Sodium Chloride 1,000 ml @ 60 mls/hr [id number] IV Last administered on 07/13/16 23:26; Admin Dose 60 MLS/HR; Start 07/11/16 at 15:00 Potassium Chloride (KCl 40 MEQ/250 ML NS) 250 ml @ 62.5 mls/hr ONCE ONCE IVPB Last administered on 07/14/16 11:43; Admin Dose 62.5 MLS/HR; Start 07/14/16 at 11:00; Stop 07/14/16 at 14:59 JADE NASCIMENTO Jul 14, 2016 14:08
--- NOTE | 2016-07-14 16:26 | RADRPT ---
PROCEDURE: US Chest. CLINICAL INDICATION: Shortness of breath. TECHNIQUE: Ultrasound of both sides of the chest was performed in the axial and sagittal planes. COMPARISON: No prior study is available for comparison. FINDINGS: There is a very small left pleural effusion. There is no right pleural effusion. IMPRESSION: 1. Very small left pleural effusion. There is not enough fluid to safely aspirate. Thoracentesis was not performed. 2. No right pleural effusion. RPTAT: QQ .Kyrie Pearson MD, MD Date Time Electronically viewed and signed by .Kyrie Pearson MD, on 07/14/2016 16:26 .R/
[2016-07-14] MEDS: ATORVASTATIN 80 MG TAB PO SCH (21:00)
[2016-07-14] MEDS: TAMSULOSIN (SR) 0.4 MG CAP PO SCH (21:00)
[2016-07-14] MEDS: INSULIN GLARGINE [LANtus] 3 ML PEN SC SCH (21:45)
[2016-07-15] VITALS (18 sets, daily range): BP systolic 111–162; BP diastolic 53–74; PULSE 70–88; RESP 18–20
[2016-07-15] MEDS: ALBUTEROL/IPRATROPIUM (NEB) 3 ML AMP HHN SCH ×5 (00:28→16:47)
[2016-07-15] MEDS: INSULIN ASPART [NOVOLOG] 3 ML PEN SC SCH ×8 (01:00→17:23)
[2016-07-15] MEDS: ACCUCHECK XX SCH (02:00)
[2016-07-15] MEDS: ACCUCHECK AT 2AM (Patients on SS coverage) XX SCH (02:00)
[2016-07-15] MEDS: DEXTROSE 5%-0.45% NACL 1,000 ML IV SCH (02:15)
[2016-07-15] MEDS: PANTOPRAZOLE 40 MG INJ IV SCH (06:06)
[2016-07-15] MEDS: CLINDAMYCIN 300 MG/D5W (PMX) 50 ML IVPB SCH ×2 (06:06→15:44)
[2016-07-15 06:38] LABS: ALBUMIN 2.5 g/dl (3.3-4.9)
[2016-07-15 06:39] LABS: POTASSIUM 3.6 mmol/L (3.5-5.1)
[2016-07-15 06:41] LABS: ALBUMIN/GLOBULIN RATIO 0.54; BILIRUBIN,DIRECT 1.8 mg/dl (0.00-0.20); BILIRUBIN,INDIRECT 0.6 mg/dl (0-1.1); BILIRUBIN,TOTAL 2.4 mg/dl (0.2-1.3); CREATININE 2.57 mg/dl (0.61-1.24); TOTAL PROTEIN 7.1 g/dl (6.1-8.1)
[2016-07-15] MEDS: CALCIUM ACETATE 667 MG CAP PO SCH ×3 (07:55→17:21)
[2016-07-15] MEDS: ASPIRIN 81 MG TAB PO SCH (08:53)
[2016-07-15] MEDS: RIFAXIMIN 550 MG TAB PO SCH (08:54)
[2016-07-15] MEDS: ALLOPURINOL 100 MG TAB PO SCH (08:55)
[2016-07-15] MEDS: DEXTROSE 50% 50 ML SYRINGE IV PRN ×2 (11:49→12:04)
--- NOTE | 2016-07-15 13:01 | CONS ---
Date/Time of Note Date/Time of Note DATE: 07/15/16 TIME: 13:00 Assessment/Plan Assessment/Plan Chief Complaint/Hosp Course IMPRESSION: 1. Altered mental status.better 2. Pneumonia. 3. Urinary tract infection. 4. End-stage renal disease. 5. Diabetes mellitus. 6. Cirrhosis of the liver. 7. Hypertension. 8. Coronary artery disease. 9. Dementia status post hypotension. 10. The patient has a left below-knee amputation. 11. Atherosclerotic heart disease. 12. The patient also has old cerebrovascular accident. plan hd Problems: Consultation Date/Type/Reason Admit Date/Time Jul 09, 2016 at 03:38 Type of Consultation: NEPHROLOGY Referring Provider: DODIE LEIGH MD 24 HR Interval Summary Constitutional: no complaints, No chills, No diaphoresis Exam/Review of Systems Vital Signs Vitals Vital Signs Date Time Temp Pulse Resp B/P Pulse Ox O2 Delivery O2 Flow Rate FiO2 07/15/16 12:38 84 07/15/16 12:00 17 07/15/16 08:30 96 Nasal Cannula 3.0 07/15/16 07:00 98.7 140/71 07/14/16 04:30 21 Intake and Output 07/14/16 07/14/16 07/15/16 15:00 23:00 07:00 Intake Total 0 ml 0 ml Output Total 150 ml 100 ml Balance -150 ml -100 ml Exam Neck: supple Respiratory: clear to auscultation Cardiovascular: regular rate and rhythm Gastrointestinal: bowel sounds (+), soft Extremities: edema (+) Results Result Diagram: 07/14/16 0710 07/15/16 0550 Results 24 hrs Laboratory Tests Test 07/14/16 18:15 07/14/16 21:32 07/15/16 02:01 07/15/16 05:47 Bedside Glucose 165 152 126 136 Test 07/15/16 05:50 07/15/16 07:40 07/15/16 11:44 07/15/16 11:53 Alanine Aminotransferase (ALT/SGPT) 30 Albumin 2.5 L Albumin/Globulin Ratio 0.54 Alkaline Phosphatase 233 H Anion Gap 13 Aspartate Amino Transf (AST/SGOT) 47 H Blood Urea Nitrogen 39 H Calcium Level 8.0 L Carbon Dioxide Level 24 Chloride Level 103 Creatinine 2.57 H Direct Bilirubin 1.80 H Globulin 4.60 H Glucose Level 135 Indirect Bilirubin 0.6 Potassium Level 3.6 Sodium Level 136 Total Bilirubin 2.4 H Total Protein 7.1 Bedside Glucose 134 36 *L 185 Test 07/15/16 11:59 Bedside Glucose 163 Medications Medications Current Medications Allopurinol (Zyloprim) 200 mg DAILY PO ; Start 07/09/16 at 09:00 Aspirin (Aspirin) 81 mg DAILY PO ; Start 07/09/16 at 09:00 Atorvastatin Calcium (Lipitor) 80 mg QHS PO ; Start 07/09/16 at 21:00 Carvedilol (Coreg) 25 mg BID PO ; Start 07/09/16 at 09:00 Insulin Glargine (Lantus) 24 unit QHS SC Last administered on 07/14/16 21:45; Admin Dose 24 UNIT; Start 07/09/16 at 21:00 Losartan Potassium (Cozaar) 100 mg DAILY PO ; Start 07/09/16 at 09:00; Status Future Hold Rifaximin (Xifaxan) 550 mg BID PO ; Start 07/09/16 at 09:00 Senna (Senokot) 1 tab DAILY PRN PO CONSTIPATION; Start 07/09/16 at 05:30 Tamsulosin HCl (Flomax) 0.4 mg HS PO ; Start 07/09/16 at 21:00 Diagnostic Test (Pha) (Accucheck) 1 ea 02 XX Last administered on 07/12/16 01: 37; Admin Dose 1 EA; Start 07/10/16 at 02:00 Miscellaneous Information 1 ea NOTE XX ; Start 07/09/16 at 06:00 Glucose (Glutose) 15 gm Q15M PRN PO DECREASED GLUCOSE; Start 07/09/16 at 06:00 Glucose (Glutose) 22.5 gm Q15M PRN PO DECREASED GLUCOSE; Start 07/09/16 at 06: 00 Dextrose (D50w Syringe) 25 ml Q15M PRN IV DECREASED GLUCOSE; Start 07/09/16 at 06:00 Dextrose (D50w Syringe) 50 ml Q15M PRN IV DECREASED GLUCOSE Last administered on 07/15/16 12:04; Admin Dose 50 ML; Start 07/09/16 at 06:00 Glucagon (Glucagen) 1 mg Q15M PRN IM DECREASED GLUCOSE; Start 07/09/16 at 06:00 Glucose (Glutose) 15 gm Q15M PRN BUCCAL DECREASED GLUCOSE; Start 07/09/16 at 06 :00 Diagnostic Test (Pha) (Accucheck) 1 ea 02 XX Last administered on 07/12/16 01: 38; Admin Dose 1 EA; Start 07/10/16 at 02:00 Lactulose 100 ml 100 ml Q8 GA Last administered on 07/10/16 06:44; Admin Dose 100 ML; Start 07/09/16 at 22:00; Status Future Hold Clindamycin HCl/ Dextrose (Cleocin 300 Mg/ D5W (Pmx)) 50 ml @ 100 mls/hr Q8 IVPB Last administered on 07/15/16 06:06; Admin Dose 100 MLS/HR; Start at 14:00 Insulin Aspart (Novolog Insulin Pen) NOVOLOG *MILD* ALGORITHM Q4 SC Last administered on 07/12/16 17:24; Admin Dose 1 UNIT; Start 07/11/16 at 13:00 Pantoprazole (Protonix Iv) 40 mg DAILY@06 IV Last administered on 07/15/16 06: 06; Admin Dose 40 MG; Start 07/12/16 at 06:00 Lorazepam 0.5 mg 0.5 mg Q6H PRN IV AGITATION Last administered on 07/13/16 23: 27; Admin Dose 0.5 MG; Start 07/11/16 at 15:00 Dextrose/Sodium Chloride (D5-1/2ns) 1,000 ml @ 60 mls/hr [id number] IV Last administered on 07/15/16 02:15; Admin Dose 60 MLS/HR; Start 07/11/16 at 15:00 DEJAH JORDAN MD Jul 15, 2016 13:01
[2016-07-15] MEDS ORDERED: AMOX1TAB10 PO (14:06)
[2016-07-15 16:10] LABS: AADO2 Arterial 95.6 mmHg (7.0-24.0); Allen Test ACCEPTAB; Arterial Base Excess 3.5 mmol/L (-3.0-3); Arterial COHb 0.8 % (0.0-3.0); Arterial Fraction of Oxyhgb 93.4 % (93.0-99.0); Arterial HCO3 27.5 mmol/L (22.0-26.0); Arterial MetHb 0.5 % (0.0-1.5); Arterial Total Hemglobin 9.6 g/dl (12.0-18.0); MODE NASAL CANNULA
--- NOTE | 2016-07-15 17:35 | DS ---
DATE OF ADMISSION: 07/09/2016 DATE OF DISCHARGE: 07/15/2016 PRESENTING COMPLAINT: Altered mentation. ADMISSION DIAGNOSES 1. Altered mentation likely secondary from hepatic encephalopathy given elevated ammonia. 2. Reported pneumonia. 3. End-stage renal disease on hemodialysis. 4. Diabetes. 5. Hypertension. 6. Coronary artery disease with history of coronary artery bypass surgery. 7. Benign prostatic hypertrophy. 8. History of left foot ischemic change/gangrene. CONSULTS ON THE CASE: Dr. Adam Joya, nephrology and Dr. Gabriele Moss for palliative care as well as a telephone consult with Dr. Pacheco from infectious disease. INTERVENTIONS: 1. Chest x-ray 07/09/2016. It showed right mid and lower lung zone atelectasis or pneumonia. 2. Dialysis catheter PEEP in the cavoatrial junction. 3. Mild cardiomegaly for previous median sternotomy. 4. Atherosclerosis. 5. Moderate left pleural effusion. The patient also had a repeat x-ray 07/13/2016 that showed stab le left perihilar and lower lung infiltrates combined with small left pleural effusion, stable patch y infiltrates in the periphery of the right lower lobe. An ultrasound-guided thoracentesis was atte mpted; however, there was no fluid for drainage. The patient also had regular in-house hemodialysis and had a 2D echocardiogram as well done 07/13/2016. It showed normal left ventricular cavity size , mild concentric left ventricular hypertrophy, mild left ventricular dysfunction, EF visually estim ated at 45%. The segments of the left ventricle are hypokinetic in the inferior mid segment, inferi or apical segment, and inferior base segment. There was an estimated peak PA systolic pressure of 2 6 with mild tricuspid regurgitation, normal size and normal respiratory collapse consistent with nor mal right atrial pressure. HOSPITAL COURSE: Full details are available in the chart for review. In summary, this patient was brought into the emergency room by his family because of concerns of altered mentation and pneumonia . The patient was supposedly at the dialysis center when he became altered and was sent to the [facility] room for further assessment, where he was diagnosed with a pneumonia. He was admitted to the hospital and commenced on broad-spectrum antibiotics. Of note is that the patient was found to have mildly elevated ammonia level of 63 and that was felt to be the cause of his altered mentation. He was started on lactulose therapy with good improvement. He was also started on broad-spectrum anti biotics and his mentation improved. However, he was seen by speech therapy, who felt that the patie nt could be silently aspirating and they felt that he was not safe for p.o. diet. Based on that ass essment, a video swallow eval was done. It was found out at this time, the patient was significantl y silently aspirating. Speech therapy recommended complete n.p.o. and alternate means of feeding. Based on that, we attempted to place an NG tube in the patient. However, due to his mentation and d iscomfort, all attempts were unsuccessful. After all this, a meeting was done with the patient's so n and his daughter. We notified them of findings and the fact that the patient might likely benefit from a PEG tube placement. Family vehemently refused this and stated that they would like to keep feeding the patient. I stressed the fact that feeding the patient was very unsafe and that the kourtney ent was likely apparently aspirating that led to his pneumonia, which was the cause of his admission in the first place. I had also told them that if they continue to feed the patient, the pneumonia might not resolve any may even worsen, which may even lead to the of the patient. The family reported understanding and hearing me; however, his daughter felt that if she used the right aspira tion precautions, and she fed her father a pureed soft diet, she would minimize this risk. I told t hem I could not authorize this in the hospital, but if her father was at home, she had the choice. The patient's daughter was also noted multiple times to keep feeding the patient while in the hospit al, despite being told repeatedly that this was not safe. After this conversation, the family repor te wanting to take the patient home to further care for him at home. I have conceded to this reque st. However, due to the patient's respiratory status, we tried to do a thoracentesis to optimize hi m prior to being discharged. However, there was not enough fluid for paracentesis, and so at this p oint after dialysis today, the patient is to be discharged to the care of his daughter on antibiotic s as an outpatient and continued outpatient followup with his own primary care physician. Also we h ad a palliative care consult, as the patient is chronically ill and prognosis is quite guarded. How ever, unfortunately, the palliative care physician was unable to speak with the patient's daughter lisa chakraborty he was here so far. DISCHARGE CONDITION: At this time is guarded. DISPOSITION: To home with family at their request. Recommended followup with his primary care narciso trejo as soon as possible. DISCHARGE MEDICATIONS: For a complete list, please review the patient's chart. Activity as tolerat ed. Please also note that at this point, the family does not come across as abusive, his daughter does come up as someone who takes good care of her father and I believe the reason for their concern for refusing a PEG tube is because they feel their father has been through a lot and this will not be his wishes. The patient's daughter and her brother understand that their father does not have a long time to live and they would like to make it as comfortable for him while doing everything they can as well to make sure he is well cared for. So, on this note I am comfortable sending him home with them, and they have been advised that they can bring him back for readmission if care for him becomes overwhelming at home and they verbalized understanding and agreement with this. Time spent on discharge planning so far has been about 40 minutes, FINAL DIAGNOSES: 1. Bilateral pneumonia with a likely component of aspiration on treatment. 2. Acute respiratory distress secondary to #2, mildly improved. 3. Altered mental status, improved. 4. Urinary tract infection, on antibiotics. 5. End-stage renal disease on hemodialysis. 6. Diabetes mellitus type 2 , improved control. 7. Chronic liver cirrhosis with associated hyperammonemia and thrombocytopenia. 8. Hypertension, controlled. 9. Known coronary artery disease status post coronary artery bypass surgery. 10. Left below the knee amputation. 11. Cerebrovascular accident. 12. Pancytopenia, which is likely secondary to chronic liver disease. 12. Hyperbilirubinemia with transaminitis, likely secondary to liver disease as well. 13. Chronic malnutrition and chronic debility, for which the family has refused alternate form of feeding. 14. Concerns for silent aspiration. Overall time spent on discharge planning has been more than 40 minutes. Dictated By: JADE NASCIMENTO MD, BA/MAYANK Conf#: [id number] DID#: [id number]
[2016-07-15] MEDS ORDERED: LACT20SO2 PO (18:54)
== END 2016-07-15 21:00 | disposition home or self-care (01) | DRG 441 ==
LOC: TEL 07-09 03:38
PROVIDERS: ADMIT Internal Medicine; ATTEND Internal Medicine
PROC: 5A1D60Z (ICD-10-PCS; principal; 2016-07-10)
DX: K72.90 Hepatic failure, unspecified without coma (principal); J18.9 Pneumonia, unspecified organism; J69.0 Pneumonitis due to inhalation of food and vomit; J90 Pleural effusion, not elsewhere classified; E46 Unspecified protein-calorie malnutrition; N18.6 End stage renal disease; F03.90 Unspecified dementia, unspecified severity, without behavioral disturbance, psychotic disturbance, mood disturbance, and anxiety; I12.0 Hypertensive chronic kidney disease with stage 5 chronic kidney disease or end stage renal disease; N39.0 Urinary tract infection, site not specified; E11.9 Type 2 diabetes mellitus without complications; I73.9 Peripheral vascular disease, unspecified; D63.8 Anemia in other chronic diseases classified elsewhere; Z99.2 Dependence on renal dialysis; Z95.1 Presence of aortocoronary bypass graft; Z89.512 Acquired absence of left leg below knee; K74.60 Unspecified cirrhosis of liver; Z86.73 Personal history of transient ischemic attack (TIA), and cerebral infarction without residual deficits; N40.0 Benign prostatic hyperplasia without lower urinary tract symptoms; R13.10 Dysphagia, unspecified; Z68.23 Body mass index [BMI] 23.0-23.9, adult
CPT/HCPCS: 36600; 71010; 74230; 76604; 80048; 80053; 82140; 82803; 82962; 83735; 84100; 85025; 85610; 90935; 92526; 92610; 92611; 93306; 94640; 94664; C9113; J1630; J1815; J2060; J3480; J7042